=== PATIENT | female | born 1950 | race Caucasian/White ===

== ENCOUNTER → 2016-09-29 | Day surgery (SDC) | payer OTHER ==
[2016-09-28 14:08] VITALS: BMI 30.7
[~2016-09-29] MED LIST: IV FLUID CONTINUATION 1,000 ML IV ONE; SODIUM CHLORIDE 0.9% 1,000 ML IV SCH
[2016-09-29 08:21] VITALS: BP 146/76; PULSE 56; RESP 16; TEMP 98.1
--- NOTE | 2016-09-29 16:14 | CE ---
DATE OF SERVICE: PROCEDURE PERFORMED: Tilt table testing. Patient has a history of recurrent pulmonary and dizzy spells. Baseline blood pressure 135/83 mmHg. Baseline heart rate 65 beats a minute. The patient was tilted upright at an angle of 70 degrees per protocol. There was a very mild reduction in her blood pressure. The lowest blood pressure was 113/7/5 mm of mercury without any change in her heart rate. She felt hot and sick to her stomach. When she was laid supine, her blood pressure increased to 135/70 millimeters of mercury. IMPRESSION: 1. No evidence for neurocardiogenic syncope. 2. No clear-cut evidence for dysautonomia. However, there was a mild reduction in blood pressure with upright position without any change in her heart rate. No loss of consciousness. No significant drop in blood pressure. The patient was symptomatic and her blood pressure was at the lowest which was about 113/75 mm of Hg. She felt a little sick to her stomach and felt hot.
== END ==
LOC: CATHEP 08:03
PROVIDERS: ATTEND Internal Medicine Clinical Cardiac Electrophysiology
DX: R42 Dizziness and giddiness (principal); R00.2 Palpitations; I51.81 Takotsubo syndrome; E78.5 Hyperlipidemia, unspecified; E78.00 Pure hypercholesterolemia, unspecified; I10 Essential (primary) hypertension; J45.909 Unspecified asthma, uncomplicated; Z82.49 Family history of ischemic heart disease and other diseases of the circulatory system; Z79.82 Long term (current) use of aspirin; Z79.899 Other long term (current) drug therapy; Z79.51 Long term (current) use of inhaled steroids; Z88.5 Allergy status to narcotic agent; Z88.2 Allergy status to sulfonamides
CPT/HCPCS: 93005; 93660

== ENCOUNTER → 2016-10-22 | Outpatient (CLI) | payer OTHER ==
--- NOTE | 2016-10-22 14:37 | US ---
EXAMINATION TYPE: US kidneys/renal and bladder DATE OF EXAM: 10/22/2016 1:05 PM COMPARISON: NONE CLINICAL HISTORY: R31.9 Hematuria R10.32 LLQ and flank Pain R35 Freg Urination. EXAM MEASUREMENTS: Right Kidney: 11.6x 4.6 x 5.4 cm Left Kidney: 12.6 x 5.3 x 5.1 cm TECHNOLOGIST IMPRESSION: wnl Right Kidney: No hydronephrosis or masses seen Left Kidney: No hydronephrosis or masses seen Bladder: not well distended There is no evidence for hydronephrosis at this point in time. No nephrolithiasis is seen. No sandra s are identified on images saved. Bladder is poorly distended and thus suboptimally evaluated. IMPRESSION: No hydronephrosis is evident bilaterally. No significant finding is seen to account for patient's sym ptoms. If symptoms persists further investigation with CT urogram would be advised.
== END | disposition home or self-care (01) ==
LOC: RADUSWWP 13:03
PROVIDERS: ATTEND Family Medicine
DX: R31.9 Hematuria, unspecified (principal); R10.32 Left lower quadrant pain; R35.0 Frequency of micturition
CPT/HCPCS: 76770

== ENCOUNTER → 2016-10-26 | Outpatient (CLI) | payer OTHER ==
--- NOTE | 2016-10-26 18:24 | CT ---
EXAMINATION TYPE: CT urogram wo/w con DATE OF EXAM: 10/26/2016 6:11 PM COMPARISON: NONE HISTORY: Hematuria and left lower quadrant pain. CT DLP: 1971.70 mGycm Automated exposure control for dose reduction was used. CONTRAST: Performed with IV Contrast, patient injected with 100 mL of Omnipaque 300. FINDINGS: The noncontrast images show no renal calcifications. Ureters are not dilated. Visualized liver and spleen appear normal. Bile ducts are not dilated. There is no sign of a pancreat ic mass. There is no adrenal mass. There is normal contrast opacification of the kidneys. There is no hydronephrosis. There is no retroperitoneal adenopathy. There is no ascites. I see no intestinal wal l thickening. There are no dilated loops. There is no evidence of appendicitis. There is atherosclero tic vascular calcification. There are spondylotic changes in the lumbar spine. There is no evidence o f a renal mass. The bladder distends smoothly. There is minimal fat stranding that is anterior to the mid descending colon. IMPRESSION: THERE IS MINIMAL FAT STRANDING ANTERIOR TO THE DESCENDING COLON THAT COULD RELATE TO MILD FOCAL COLIT IS. NO EVIDENCE OF A URINARY TRACT ABNORMALITY.
== END | disposition home or self-care (01) ==
LOC: RADCTMAIN 17:05
PROVIDERS: ATTEND Family Medicine
DX: R31.9 Hematuria, unspecified (principal); R10.32 Left lower quadrant pain; R35.0 Frequency of micturition
CPT/HCPCS: 74178; 74400; Q9967

== ENCOUNTER → 2017-01-28 | Outpatient (CLI) | payer MEDICARE ==
--- NOTE | 2017-02-01 08:21 | MM ---
Reason for exam: screening (asymptomatic). Last mammogram was performed 1 year ago. History: Patient is postmenopausal and has history of high-risk lesion on a previous biopsy at age 56. Benign stereotactic core biopsy of the left breast, May 2015. Benign right mammotome panel of the right breast, July 24, 2013. Excisional biopsy of the left breast, March 18, 2007. High risk left mammotome panel of the left breast, February 28, 2007. Took estrogen for 2 years beginning at age 51. Physical Findings: A clinical breast exam by your physician is recommended on an annual basis and results should be correlated with mammographic findings. MG 3D Screening Mammo W/Cad Bilateral CC and MLO view(s) were taken. Prior study comparison: May 23, 2015, bilateral MG diagnostic mammo w CAD MARYANNE. There are scattered fibroglandular densities. Previous mammotome biopsy within the right and left breast. No significant changes when compared with prior studies. ASSESSMENT: Benign, BI-RAD 2 RECOMMENDATION: Routine screening mammogram of both breasts in 1 year.
== END | disposition home or self-care (01) ==
LOC: RADMAMWWP 11:45
PROVIDERS: ATTEND Obstetrics & Gynecology
DX: Z12.31 Encounter for screening mammogram for malignant neoplasm of breast (principal)
CPT/HCPCS: 77063; G0202

== ENCOUNTER 2017-04-15 19:23 | Emergency (ER) | payer MEDICARE ==
[2017-04-15] MEDS ORDERED: hydrALAZINE HCL 20 MG/ML 1 ML VIAL IVP STA (19:58)
[2017-04-15 20:07] LABS: Basophils # (A) 0.1 k/uL (0-0.2); Basophils % (A) 1 %; CH 28.8; CHCM 33.9; Eosinophils # (A) 0.3 k/uL (0-0.7); Eosinophils % (A) 3 %; HCT 38.5 % (34.0-46.0); HDW 2.81; HGB 13.4 gm/dL (11.4-16.0); Luc # (Auto) 0.43; Luc % (Auto) 5; Lymphocytes # (A) 2.5 k/uL (1.0-4.8); Lymphocytes % (A) 26 %; MCH 29.7 pg (25.0-35.0); MCHC 34.8 g/dL (31.0-37.0); MCV 85.5 fL (80.0-100.0); Mean Platelet Volume 6.5; Monocytes # (A) 0.4 k/uL (0-1.0); Monocytes % (A) 4 %; Neutrophils # (A) 5.9 k/uL (1.3-7.7); Neutrophils % (A) 62 %; RBC 4.51 m/uL (3.80-5.40); RDW 13.9 % (11.5-15.5); WBC 9.5 k/uL (3.8-10.6); WBC (Perox) 9.44
[2017-04-15 20:17] LABS: ALT 42 U/L (9-52); AST 31 U/L (14-36); Alkaline Phosphatase 95 U/L (38-126); Anion Gap 11 mmol/L; Blood Urea Nitrogen 9 mg/dL (7-17); Calcium 9.7 mg/dL (8.4-10.2); Carbon Dioxide 25 mmol/L (22-30); Chloride 107 mmol/L (98-107); Glucose 96 mg/dL (74-99); Non-African American GFR(MDRD) >60 (>60 ml/min/1.73 sqM); Potassium 4.3 mmol/L (3.5-5.1); Sodium 143 mmol/L (137-145); Total Bilirubin 0.4 mg/dL (0.2-1.3); Total Protein 7.2 g/dL (6.3-8.2)
[2017-04-15] MEDS ORDERED: LABETALOL 5 MG/ML VIAL MDV IVP STA (20:48)
--- NOTE | 2017-04-15 20:48 | ED ---
General Adult HPI - General Chief complaint: Shortness of Breath Stated complaint: high blood pressure Time Seen by Provider: 04/15/17 19:48 Source: patient Mode of arrival: ambulatory Limitations: no limitations - History of Present Illness Initial comments: This 66-year-old white female presents with a complaint of hypertension. Her blood pressure apparently was running fairly high at home. She otherwise is fairly asymptomatic. She states that she's had a slight cold with occasional cough and occasional shortness of breath over the last 2 months. This is unchanged today. She denies any fevers, chest pain, leg swelling. She complains of a mild headache which she feels may be related to her blood pressure being elevated. She has had blood pressure problems for some time but is been relatively stable. She denies any recent changes in her medications. She took an extra dose for blood pressure medication tonight without any significant relief. She denies any other complaints or modifying factors. - Related Data Home Medications Medication Instructions Recorded Confirmed Cyclobenzaprine [Flexeril] 10 mg PO HS PRN 06/11/14 04/15/17 Metoprolol Succinate (ER) [Toprol 25 mg PO QAM 07/01/15 04/15/17 XL] Albuterol Nebulized [Ventolin 2.5 mg INHALATION RT-QID PRN 07/02/15 04/15/17 Nebulized] Pantoprazole Sodium [Protonix] 40 mg PO HS 07/02/15 04/15/17 Aspirin EC [Ecotrin Low Dose] 81 mg PO HS 09/28/16 04/15/17 Budesonide/Formoterol Fumarate 1 puff INHALATION RT-HS PRN 09/28/16 04/15/17 [Symbicort 80-4.5 Mcg Inhaler] Levothyroxine Sodium [Synthroid] 50 mcg PO HS 09/28/16 04/15/17 Losartan Potassium [Cozaar] 50 mg PO DAILY 09/28/16 04/15/17 Montelukast [Singulair] 10 mg PO HS 09/28/16 04/15/17 Multivitamins, Thera [Multivitamin] 1 tab PO HS 09/28/16 04/15/17 Allergies Allergy/AdvReac Type Severity Reaction Status Date / Time codeine Allergy Rash/Hives Verified 04/15/17 19:40 Sulfa (Sulfonamide Allergy Rash/Hives Verified 04/15/17 19:35 Antibiotics) Review of Systems ROS Statement: Those systems with pertinent positive or pertinent negative responses have been documented in the HPI. ROS Other: All systems not noted in ROS Statement are negative. Past Medical History Past Medical History: Asthma, GERD/Reflux, Hyperlipidemia, Hypertension, Osteoarthritis (OA), Thyroid Disorder Additional Past Medical History / Comment(s): Hx. of Irritable Bowel Syndrome. See Dr. Rodriguez's H & P. History of Any Multi-Drug Resistant Organisms: None Reported Past Surgical History: Appendectomy, Heart Catheterization, Joint Replacement, Tonsillectomy, Tubal Ligation Additional Past Surgical History / Comment(s): Sinus Surgery; cervical fusion, hip surgery, See Dr. Rodriguez's H & P. Past Anesthesia/Blood Transfusion Reactions: No Reported Reaction Past Psychological History: No Psychological Hx Reported Smoking Status: Never smoker - Past Family History Father Family Medical History: Cancer Additional Family Medical History / Comment(s): Leukemia. Mother Family Medical History: Hyperlipidemia Additional Family Medical History / Comment(s): heart valve problems, sciatica. General Exam - General Exam Comments Initial Comments: GENERAL: The patient is well nourished and well hydrated. VITAL SIGNS: Heart rate, blood pressure, respiratory rate reviewed as recorded in nurse's notes. EYES: Pupils are round and reactive. Extraocular movements are intact. No conjunctival / lid redness or swelling. ENT: No external evidence of injury, swelling, or ecchymosis. Airway is patent. Throat is clear. NECK: Nontender. No swelling or evidence of injury. No subcutaneous emphysema. Trachea is midline. No thyroid mass. HEART: Regular rate and rhythm. Good peripheral pulses. LUNGS/CHEST: Breath sounds clear and equal bilaterally. No rales, rhonchi, or wheezes. No ecchymosis, subcutaneous emphysema, or tenderness. ABDOMEN: Abdomen soft without tenderness. No palpable masses or organomegaly. No peritoneal signs. No abdominal wall swelling or ecchymosis. EXTREMITIES: No extremity tenderness. Normal muscle tone and function. No thoracolumbar tenderness. NEUROLOGIC: Sensation is grossly intact. Cranial nerve exam reveals face is symmetrical, tongue is midline, speech is clear. SKIN: No abrasions or ecchymosis is noted. No induration or masses noted. PSYCHIATRIC: Alert and oriented. Appropriate behavior and judgment. Limitations: no limitations Course Vital Signs 08/03/17 08/03/17 08/03/17 19:31 19:56 20:16 Temperature 99.9 F H Pulse Rate 64 68 Respiratory 16 20 18 Rate Blood Pressure 193/88 186/89 O2 Sat by Pulse 96 96 Oximetry 04/15/17 20:57 Temperature Pulse Rate 75 Respiratory 20 Rate Blood Pressure 195/82 O2 Sat by Pulse 98 Oximetry Medical Decision Making - Medical Decision Making The patient was seen and examined. All diagnostics were reviewed. An EKG was done which shows a normal sinus rhythm at a rate of 67. There is some T-wave inversion in the anterolateral leads. The WA interval is 168, QS duration is 88 , and the QTc interval is 41. An IV was established and she received some hydralazine intravenously. The chest x-ray does not show any acute process. She later does receive some labetalol intravenously as well. She is feeling better on recheck. The exact cause of her hypertension is not definitively determined. Her laboratories unremarkable. It is felt as though she is stable for discharge. She should maintain a blood pressure log. She is instructed to take an extra dose of her blood pressure medicine tomorrow as well. She should have close follow-up with her doctor and leaves in no distress. - Lab Data Result diagrams: 04/15/17 19:50 04/15/17 19:50 Lab Results 04/15/17 04/15/17 Range/Units 19:50 19:50 WBC 9.5 (3.8-10.6) k/uL RBC 4.51 (3.80-5.40) m/uL Hgb 13.4 (11.4-16.0) gm/dL Hct 38.5 (34.0-46.0) % MCV 85.5 (80.0-100.0) fL MCH 29.7 (25.0-35.0) pg MCHC 34.8 (31.0-37.0) g/dL RDW 13.9 (11.5-15.5) % Plt Count 379 (150-450) k/uL Neutrophils % 62 % Lymphocytes % 26 % Monocytes % 4 % Eosinophils % 3 % Basophils % 1 % Neutrophils # 5.9 (1.3-7.7) k/uL Lymphocytes # 2.5 (1.0-4.8) k/uL Monocytes # 0.4 (0-1.0) k/uL Eosinophils # 0.3 (0-0.7) k/uL Basophils # 0.1 (0-0.2) k/uL Sodium 143 (137-145) mmol/L Potassium 4.3 (3.5-5.1) mmol/L Chloride 107 (98-107) mmol/L Carbon Dioxide 25 (22-30) mmol/L Anion Gap 11 mmol/L BUN 9 (7-17) mg/dL Creatinine 0.70 (0.52-1.04) mg/dL Est GFR (MDRD) Af Amer >60 (>60 ml/min/1.73 sqM) Est GFR (MDRD) Non-Af >60 (>60 ml/min/1.73 sqM) Glucose 96 (74-99) mg/dL Calcium 9.7 (8.4-10.2) mg/dL Total Bilirubin 0.4 (0.2-1.3) mg/dL AST 31 (14-36) U/L ALT 42 (9-52) U/L Alkaline Phosphatase 95 (38-126) U/L Total Protein 7.2 (6.3-8.2) g/dL Albumin 4.5 (3.5-5.0) g/dL Disposition Clinical Impression: Hypertensive urgency Disposition: HOME SELF-CARE Condition: Good Instructions: Hypertension (ED), DASH Eating Plan (ED) Referrals: Mary Maloney MD [Primary Care Provider] - 1-2 days Time of Disposition: 20:41
[2017-04-15 21:04] VITALS: RESP 18
--- NOTE | 2017-04-15 21:22 | XR ---
EXAMINATION TYPE: XR chest 2V DATE OF EXAM: 04/15/2017 COMPARISON: 01/12/2016 HISTORY: Difficulty breathing TECHNIQUE: Frontal and lateral views of the chest are obtained. FINDINGS: Heart appears enlarged. There is no heart failure. There is a hiatal hernia. There are charlene st leads. Bony thorax is intact. IMPRESSION: Cardiomegaly. No active cardia pulmonary disease. No change.
[2017-04-15 21:50] VITALS: BP 136/71; PULSE 76; TEMP 98
== END 2017-04-15 21:49 | disposition home or self-care (01) ==
LOC: EC 19:23
DX: I16.0 Hypertensive urgency (principal); K21.9 Gastro-esophageal reflux disease without esophagitis; E07.9 Disorder of thyroid, unspecified; M19.90 Unspecified osteoarthritis, unspecified site; J45.909 Unspecified asthma, uncomplicated; Z88.5 Allergy status to narcotic agent; Z88.2 Allergy status to sulfonamides; Z79.82 Long term (current) use of aspirin; Z79.899 Other long term (current) drug therapy
CPT/HCPCS: 36415; 93005; 80053; 85025; 71020; 99285; 96374; 96375; J0360

== ENCOUNTER → 2018-04-05 | Outpatient (CLI) | payer MEDICARE ==
--- NOTE | 2018-04-07 09:57 | MM ---
Reason for exam: screening (asymptomatic). Last mammogram was performed 1 year and 2 months ago. History: Patient is postmenopausal and has history of high-risk lesion on a previous biopsy at age 56. Benign stereotactic core biopsy of the left breast, May 2015. Benign right mammotome panel of the right breast, July 24, 2013. Excisional biopsy of the left breast, March 18, 2007. High risk left mammotome panel of the left breast, February 28, 2007. Took estrogen for 2 years beginning at age 51. Physical Findings: A clinical breast exam by your physician is recommended on an annual basis and results should be correlated with mammographic findings. MG 3D Screening Mammo W/Cad Bilateral CC and MLO view(s) were taken. Prior study comparison: January 28, 2017, bilateral MG 3d screening mammo w/cad. January 24, 2016, left breast MG 3d diag mammo w/cad LT. There are scattered fibroglandular densities. Previous mammotome biopsy in the right and left breast. There is chronic nodularity in the left breast. Stable lower inner quadrant right breast calcifications. Stable focal asymmetries right breast. No significant changes when compared with prior studies. ASSESSMENT: Benign, BI-RAD 2 RECOMMENDATION: Routine screening mammogram of both breasts in 1 year.
== END | disposition home or self-care (01) ==
LOC: RADMAMWWP 16:28
PROVIDERS: ATTEND Obstetrics & Gynecology
DX: Z12.31 Encounter for screening mammogram for malignant neoplasm of breast (principal)
CPT/HCPCS: 77063; 77067

== ENCOUNTER → 2019-03-29 | Outpatient (CLI) | payer MEDICARE ==
--- NOTE | 2019-03-30 07:57 | BD ---
EXAMINATION TYPE: Bone Density DATE OF EXAM: 03/29/2019 COMPARISON: 2012 CLINICAL HISTORY: osteoporosis Height: 5'3 Weight: FRAX RISK QUESTIONS: Secondary Osteoporosis: RISK FACTORS HISTORY OF: Family History of Osteoporosis: y Postmenopausal woman: y MEDICATIONS: Thyroid Medications: Which medication: Synthroid How Lon years Additional Medications: blood pressure, acid reflux, Singulair Additional History: EXAM MEASUREMENTS: Bone mineral densitometry was performed using the [employer] System. Bone mineral density as measured about the Lumbar spine is: ----- L1-L4(G/cm2): 1.185 T Score Values are as follows: ----- L2: -0.6 ----- L3: 0.3 ----- L4: 0.4 ----- L1-L4: 0.4 Bone mineral density has: Increased 3.6% since study of: 05/09/2013 Bone mineral density about the R hip (g/cm2): 0.930 Bone mineral density about the L hip (g/cm2): 0.824 T Score values are as follows: -----R Neck: -0.8 -----L Neck: -1.5 -----R Total: -1.0 -----L Total: -1.4 Bone mineral density has: Increased 0.1% since study of: 05/09/2013 IMPRESSION: Osteopenia (T Score between -2.5 and -1) left hip remains present. Bone density is stable or slightly increased from prior. There remains slightly increased risk of fracture and the patient may be considered for treatment. Re-Screen 2-5 years. NOTE: T-SCORE=SD OF THE YOUNG ADULT MEAN.
== END | disposition home or self-care (01) ==
LOC: RADMAMWWP 15:10
PROVIDERS: ATTEND Obstetrics & Gynecology
DX: M85.852 Other specified disorders of bone density and structure, left thigh (principal); Z78.0 Asymptomatic menopausal state
CPT/HCPCS: 77080

== ENCOUNTER → 2019-04-26 | Outpatient (CLI) | payer MEDICARE ==
--- NOTE | 2019-04-27 14:06 | MM ---
Reason for exam: screening (asymptomatic). Last mammogram was performed 1 year and 1 month ago. History: Patient is postmenopausal and has history of high-risk lesion on a previous biopsy at age 56. Benign stereotactic core biopsy of the left breast, May 2015. Benign right mammotome panel of the right breast, July 24, 2013. Excisional biopsy of the left breast, March 18, 2007. High risk left mammotome panel of the left breast, February 28, 2007. Took estrogen for 2 years beginning at age 51. Physical Findings: A clinical breast exam by your physician is recommended on an annual basis and results should be correlated with mammographic findings. MG 3D Screening Mammo W/Cad Bilateral CC and MLO view(s) were taken. Prior study comparison: April 05, 2018, bilateral MG 3d screening mammo w/cad. January 28, 2017, bilateral MG 3d screening mammo w/cad. The breast tissue is heterogeneously dense. This may lower the sensitivity of mammography. There is increased right lower inner quadrant posterior depth calcifications. Right upper outer quadrant middle depth focal asymmetry. Bilateral biopsy markers noted. ASSESSMENT: Incomplete: need additional imaging evaluation, BI-RAD 0 RECOMMENDATION: Special view mammogram of the right breast. If lesion persists on supplemental views, image directed ultrasound is recommended. [facility] will attempt to contact patient to return for supplemental views and ultrasound if indicated.
== END | disposition home or self-care (01) ==
LOC: RADMAMWWP 10:50
PROVIDERS: ATTEND Obstetrics & Gynecology
DX: Z12.31 Encounter for screening mammogram for malignant neoplasm of breast (principal)
CPT/HCPCS: 77063; 77067

== ENCOUNTER → 2019-05-08 | Outpatient (CLI) | payer MEDICARE ==
--- NOTE | 2019-05-10 09:26 | MM ---
Reason for exam: additional evaluation requested from abnormal screening. Last mammogram was performed less than 1 month ago. History: Patient is postmenopausal and has history of high-risk lesion on a previous biopsy at age 56. Benign stereotactic core biopsy of the left breast, May 2015. Benign right mammotome panel of the right breast, July 24, 2013. Excisional biopsy of the left breast, March 18, 2007. High risk left mammotome panel of the left breast, February 28, 2007. Took estrogen for 2 years beginning at age 51. Physical Findings: Nurse did not find any significant physical abnormalities on exam. MG 3D Work Up W/Cad RT Spot compression CC, spot compression MLO, CC with magnification, LM with magnification, and LM view(s) were taken of the right breast. Prior study comparison: April 26, 2019, bilateral MG 3d screening mammo w/cad. April 05, 2018, bilateral MG 3d screening mammo w/cad. The breast tissue is heterogeneously dense. This may lower the sensitivity of mammography. There is a 1.3cm group of calcifications in the right lower inner quadrant at posterior depth that are increasing biopsy recommended. Right upper outer quadrant focal asymmetry is stable in comparison to priors back to 2009. These results were verbally communicated with the patient and result sheet given to the patient on 05/08/19. ASSESSMENT: Suspicious, BI-RAD 4 RECOMMENDATION: Stereotactic core biopsy of the right breast. Called with mammographic findings and has scheduled an appointment for the patient for 06/28/19 at 3:[address] Maloney. Biopsy scheduled for 05/16/19 at 10:20. PRELIMINARY REPORT CALLED AND FAXED TO DR. MALONEY ON 05/10/19.
== END | disposition home or self-care (01) ==
LOC: RADMAMWWP 14:07
PROVIDERS: ATTEND Obstetrics & Gynecology
DX: R92.8 Other abnormal and inconclusive findings on diagnostic imaging of breast (principal)
CPT/HCPCS: 77065; G0279; 77061

== ENCOUNTER → 2019-05-26 | Day surgery (SDC) | payer MEDICARE ==
[2019-05-26 09:54] VITALS: RESP 16
[2019-05-26 11:21] VITALS: BP 138/77; PULSE 66; TEMP 97.8
--- NOTE | 2019-05-26 12:24 | MM ---
EXAMINATION TYPE: MG stereo VAD BX RT DATE OF EXAM: 05/26/2019 COMPARISON: Mammographic workup dated 05/08/1915 CLINICAL HISTORY: Indeterminate right breast calcifications for which stereotactic guided biopsy was recommended TECHNIQUE: Stereotactic guided core biopsy of the right breast. FINDINGS: The procedure of stereotactic guided core biopsy was explained to the patient. Benefits, alternatives, and risks were discussed. An informed consent was then obtained. Preprocedural timeout was performed. The shortness pathway for biopsy was chosen. Shortness pathway was CC from below approach. Preprocedural localization images were obtained and a 1.3 cm group of calcifications within the lower inner quadrant of the right breast was demonstrated. Coordinates were calculated. Subsequently 10 cc of lidocaine without epinephrine was utilized to anesthetize the skin and deeper subcutaneous soft tissues. The needle was advanced to the appropriate depth. Prefire images were obtained ensuring appropriate location. Postfire injection of 10 cc of lidocaine with epinephrine was utilized to anesthetize the site of biopsy. A vacuum assisted biopsy gun was used to obtain 7 core samples. Biopsy marker was placed. The patient tolerated the procedure well without any immediate complication. The patient was kept in the radiology department for short stay after the procedure and then discharged home in stable condition. Targeted calcifications are identified in specimen mammogram. Post biopsy mammogram shows the biopsy marker to appear in satisfactory position relative to the targeted area of concern on the preprocedure images without migration within the lower inner quadrant of the right breast at posterior depth. IMPRESSION: SUCCESSFUL, UNCOMPLICATED STEREOTACTIC GUIDED CORE BIOPSY OF A GROUP OF 1.3 CM CALCIFICATIONS WITHIN THE LOWER INNER QUADRANT OF THE RIGHT BREAST, FULL PATHOLOGY RESULTS TO FOLLOW. Pathology Results: Benign RIGHT BREAST LESION, NEEDLE CORE BIOPSIES: Fibroadenomatoid hyperplasia in a background of fibrocystic changes with coarse intraductal mineralizations. Recommendation Follow up mammogram of the right breast in 6 months. MTDD
== END ==
LOC: RADMAMWWP 09:14
PROVIDERS: ATTEND Surgery
DX: D24.1 Benign neoplasm of right breast (principal); N60.11 Diffuse cystic mastopathy of right breast; R92.8 Other abnormal and inconclusive findings on diagnostic imaging of breast; R92.1 Mammographic calcification found on diagnostic imaging of breast; Z88.5 Allergy status to narcotic agent; Z88.2 Allergy status to sulfonamides
CPT/HCPCS: 88305; 19081; A4648; J2001

== ENCOUNTER → 2019-06-06 | Outpatient (CLI) | payer MEDICARE ==
--- NOTE | 2019-06-06 13:43 | US ---
EXAMINATION TYPE: US thyroid st tissue head/neck DATE OF EXAM: 06/06/2019 COMPARISON: NONE CLINICAL HISTORY: E04.1 thyroid nodule. On thyroid meds. Patient states doctor felt nodule. GLAND SIZE: Right Lobe: 3.8 x 1.8 x 2.0 cm Overall Parenchyma: heterogenous Left Lobe: 3.3 x 1.5 x 1.2 cm Overall Parenchyma: heterogeneous Isthmus Thickness: 0.3 cm NODULES RIGHT: # of nodules measured on right: 2 1. 1.6 X 1.2 x 1.6 cm mixed nodule at the mid pole with well-defined margins. This nodule is talle r than wide and shows intranodular vascularity. Prior size: No prior 2. 1.1 X 0.8 x 0.8 cm solid nodule at the lower pole with well-defined margins. This nodule is wide as tall and shows no intranodular vascularity. Prior size: No prior LEFT: # of nodules measured on left: 2 1. 1.7 X 1.2 x 0.8 cm solid nodule at the mid pole with well-defined margins. This nodule is wider than tall and shows intranodular vascularity. Prior size: No prior 2. 0.6 X 0.6 x 0.5 cm solid nodule at the lower pole with well-defined margins. This nodule is wide r than tall and shows no intranodular vascularity. Prior size: No prior ISTHMUS: # of nodules measured in the isthmus: 0 Bilateral neck scanned, no evidence of lymphadenopathy. IMPRESSION: Multiple solid bilateral thyroid nodules. Fine-needle aspiration is recommended for the largest nodul es bilaterally.
== END | disposition home or self-care (01) ==
LOC: RADUSWWP 12:56
PROVIDERS: ATTEND Allergy & Immunology
DX: E04.2 Nontoxic multinodular goiter (principal)
CPT/HCPCS: 76536

== ENCOUNTER → 2019-06-08 | Outpatient (CLI) | payer MEDICARE ==
--- NOTE | 2019-06-08 13:55 | XR ---
EXAMINATION TYPE: XR chest 2V DATE OF EXAM: 06/08/2019 COMPARISON: None INDICATION: A 45.40 TECHNIQUE: Frontal and lateral views of the chest are obtained. FINDINGS: The heart size is mildly prominent. The pulmonary vasculature is normal. The lungs are clear. IMPRESSION: 1. No acute pulmonary process.
== END | disposition home or self-care (01) ==
LOC: RADXRMAIN 13:19
PROVIDERS: ATTEND Allergy & Immunology
DX: J45.40 Moderate persistent asthma, uncomplicated (principal)
CPT/HCPCS: 71046

== ENCOUNTER 2019-06-29 09:21 | Day surgery (SDC) | payer MEDICARE ==
[2019-06-29] MEDS ORDERED: ALPRAZolam 0.25 MG TAB PO ONE (09:40)
[2019-06-29 09:44] VITALS: TEMP 98.3
[2019-06-29 11:33] VITALS: BP 139/71; PULSE 63; RESP 14
--- NOTE | 2019-06-29 12:18 | US ---
ULTRASOUND GUIDED FNA THYROID BIOPSY: CLINICAL HISTORY: Request for a 1.6 cm right and 1.7 cm left thyroid nodule FNA FINDINGS: The procedure was explained to the patient. The risks, complications, benefits and alternatives were discussed and any questions were answered. Informed consent was obtained. Patient was placed supin e on the ultrasound table and prepped and draped in the usual sterile fashion. Utilizing a 25 gauge needle, five passes were made into the each of the 2 requested thyroid nodules. Patient was stable throughout the procedure. Pathology is pending. All elements of maximal barrier technique were utilized. IMPRESSION: 1. Successful ultrasound guided FNA thyroid biopsy.
== END 2019-06-29 10:23 | disposition home or self-care (01) ==
LOC: RADPROMAIN 09:21
PROVIDERS: ATTEND Family Medicine
DX: E04.2 Nontoxic multinodular goiter (principal)
CPT/HCPCS: 10005; 10006; 88173; 88305

== ENCOUNTER → 2019-07-11 | Outpatient (CLI) | payer MEDICARE ==
[2019-07-11 16:53] LABS: African American GFR (CKD) 103.9 (60.0-200.0); Anion Gap 11.9 mmol/L (4.00-12.00); Calcium 9.8 mg/dL (8.7-10.3); Carbon Dioxide 28.1 mmol/L (21.6-31.8); Chol/HDL Ratio 4.77; LDL Cholesterol,Calculated 197.2 mg/dL (0.0-131.0); Potassium 4.2 mmol/L (3.5-5.5); VLDL Calculation 32.8 mg/dL (5.00-40.00)
[2019-07-11 17:01] LABS: T4, Free (Free Thyroxine) 1.2 ng/dL (0.80-1.80)
[2019-07-11 17:03] LABS: Thyroid Peroxidase Antibodies <28.0 U/mL (0.0-60.0)
== END | disposition home or self-care (01) ==
LOC: LABWHC1 09:20
PROVIDERS: ATTEND Physician Assistant
DX: I10 Essential (primary) hypertension (principal); R00.2 Palpitations; E78.5 Hyperlipidemia, unspecified; E03.9 Hypothyroidism, unspecified
CPT/HCPCS: 36415; 80048; 80061; 84436; 84439; 84443; 84481; 86376; 86800

== ENCOUNTER 2019-09-22 08:08 | Day surgery (SDC) | payer MEDICARE ==
[2019-07-26 12:12] VITALS: BMI 29.2
[~2019-09-22 08:08] MED LIST changes: -IV FLUID CONTINUATION 1,000 ML IV ONE; +LACTATED RINGERS 1,000 ML IV SCH; +LIDOCAINE 1% 20 ML VIAL (10MG/ML) FOR IV START INTRADERMA PRN; -SODIUM CHLORIDE 0.9% 1,000 ML IV SCH
[2019-09-22 09:00] VITALS: RESP 16; TEMP 98.1
[2019-09-22] MEDS ORDERED: LIDOCAINE 1% INJ 10MG/ML (20 ML MDV) ONE (09:16)
[2019-09-22] MEDS ORDERED: PROPOFOL 10 MG/ML 20 ML VIAL IV ONE (09:16)
--- NOTE | 2019-09-22 09:47 | P.PCN ---
Date of Procedure: 09/22/19 Procedure(s) Performed: Brief history: Patient is a pleasant 68-year-old white female scheduled for an elective upper endoscopy as well as colonoscopy as a part of evaluation of intermittent dysphagia to solids, long-standing history of GERD and change in bowel habits. Procedure performed: Esophagogastroduodenoscopy with biopsy Colonoscopy with snare polypectomy Preoperative diagnosis: /Dysphagia Change in bowel habits/history of IBS Anesthesia: MAC Procedure: After informed consent was obtained from the patient was brought into the endoscopy unit and IV sedation was administered by anesthesia under continuous monitoring. Initially upper endoscopy was done. The Olympus GF 160 video end oscope was inserted inserted into the mouth and esophagus intubated without any difficulty and was gradually advanced into the stomach and duodenum and carefully examined. The bulb and second part of the duodenum appeared normal. Multiple biopsies were done from the duodenum to rule out celiac disease. The scope was then withdrawn into the stomach adequately insufflated with air and upon careful examination the antrum and body, cardia and fundus appeared normal. There were multiple small to moderate size gastric polyps measuring between 5 mm to 1 cm in size which were biopsied. The scope was then withdrawn into the esophagus. The GE junction was located at 40 cm to the incisors. It appeared regular with no erythema erosions or ulcerations. Biopsies were done from the mid and distal esophagus to rule out eosinophilic esophagitis. Rest of the esophagus appeared normal. Patient tolerated the procedure well. At this time the patient continued to remain sedation. Initial digital rectal examination was normal. Olympus CF 160 video colonoscope was then inserted into the rectum and gradually advanced to the cecum without any difficulty. Careful examination was performed as the scope was gradually being withdrawn. The prep was excellent. The cecum, appeared normal. In the ascending colon there was a 1 cm broad-based polyp that was removed by snare polypectomy. In the hepatic flexure there was a 1.5 L broad-based polyp removed by snare polypectomy. In the proximal transverse colon there was another 1 cm broad-based polyp removed by snare polypectomy. Rest of the ascending colon, transverse colon, descending colon, sigmoid colon and rectum appeared normal. Retroflexion was performed in the rectum and no lesions were noted. Patient tolerated the procedure well. Impression: 1. Upper endoscopy revealed multiple gastric polyps status post biopsy and mild antral gastritis 2. Colonoscopy revealed: a) 1 cm broad-based ascending colon polyp status post polypectomy b) 1.5 cm broad-based hepatic flexure polyp status post polypectomy C0 1 cm broad-based proximal transverse colon polyp status post polypectomy d) scattered sigmoid diverticulosis Recommendations: Findings of this examination were discussed with the patient as well as her family. She was advised to follow with the biopsy results. If the biopsy shows an adenoma she can have a repeat colonoscopy in 3 years.
[2019-09-22 10:00] VITALS: BP 119/59; PULSE 79
== END 2019-09-22 10:55 | disposition home or self-care (01) ==
LOC: ORWHC2ENDO 08:08
PROVIDERS: ATTEND Internal Medicine Gastroenterology
DX: D12.2 Benign neoplasm of ascending colon (principal); D12.3 Benign neoplasm of transverse colon; K21.9 Gastro-esophageal reflux disease without esophagitis; K31.7 Polyp of stomach and duodenum; K29.50 Unspecified chronic gastritis without bleeding; K57.30 Diverticulosis of large intestine without perforation or abscess without bleeding; I10 Essential (primary) hypertension; E78.5 Hyperlipidemia, unspecified; J45.909 Unspecified asthma, uncomplicated; E07.9 Disorder of thyroid, unspecified; Z79.899 Other long term (current) drug therapy; Z88.5 Allergy status to narcotic agent; Z88.2 Allergy status to sulfonamides; Z87.19 Personal history of other diseases of the digestive system; Z79.82 Long term (current) use of aspirin; Z79.890 Hormone replacement therapy; Z79.51 Long term (current) use of inhaled steroids
CPT/HCPCS: 88305; 45385; 43239; J2001; J2704

== ENCOUNTER → 2019-11-07 | Outpatient (CLI) | payer MEDICARE ==
[2019-11-07 12:52] LABS: Basophils % (A) 0 %; Eosinophils # (A) 0.1 k/uL (0-0.7); Eosinophils % (A) 2 %; HCT 40.9 % (34.0-46.0); HGB 13.8 gm/dL (11.4-16.0); Lymphocytes # (A) 1.9 k/uL (1.0-4.8); Lymphocytes % (A) 21 %; MCH 28.6 pg (25.0-35.0); MCHC 33.8 g/dL (31.0-37.0); MCV 84.5 fL (80.0-100.0); Mean Platelet Volume 7.1; Monocytes # (A) 0.3 k/uL (0-1.0); Monocytes % (A) 4 %; Neutrophils # (A) 6.4 k/uL (1.3-7.7); Neutrophils % (A) 69 %; Platelet Count 422 k/uL (150-450); RBC 4.84 m/uL (3.80-5.40); RDW 13.6 % (11.5-15.5); WBC 9.2 k/uL (3.8-10.6)
[2019-11-07 13:16] LABS: Erythrocyte Sedimentation Rate 29 mm/hr (0-20)
[2019-11-07 17:30] LABS: African American GFR (CKD) 103.9 (60.0-200.0); Albumin 4.9 g/dL (3.80-4.90); Albumin/Globulin Ratio 2.88 (1.60-3.17); Anion Gap 9.9 mmol/L (4.00-12.00); C Reactive Protein 1.9 mg/dL (0.0-0.8); Carbon Dioxide 27.1 mmol/L (21.6-31.8); Globulin 1.7 g/dL (1.6-3.3); Non-African American GFR(CKD) 89.7 (60.0-200.0); Potassium 5.2 mmol/L (3.5-5.5); Total Bilirubin 0.3 mg/dL (0.3-1.2); Total Protein 6.6 g/dL (6.2-8.2)
== END | disposition home or self-care (01) ==
LOC: LABWHC1 11:39
PROVIDERS: ATTEND Allergy & Immunology
DX: J45.40 Moderate persistent asthma, uncomplicated (principal); M79.10 Myalgia, unspecified site
CPT/HCPCS: 36415; 80053; 82550; 85025; 85652; 86038; 86140

== ENCOUNTER → 2020-02-14 | Outpatient (CLI) | payer MEDICARE ==
--- NOTE | 2020-02-15 09:09 | MM ---
Reason for exam: follow-up at short interval from prior study. Last mammogram was performed 9 months ago. History: Patient is postmenopausal and has history of high-risk lesion on a previous biopsy at age 56. Family history of breast cancer in paternal grandmother. Benign MG stereo VAD BX RT of the right breast, May 26, 2019. Benign stereotactic core biopsy of the left breast, May 2015. Benign right mammotome panel of the right breast, July 24, 2013. Excisional biopsy of the left breast, March 18, 2007. High risk left mammotome panel of the left breast, February 28, 2007. Took estrogen for 2 years beginning at age 51. Physical Findings: A clinical breast exam by your physician is recommended on an annual basis and results should be correlated with mammographic findings. MG 3D Diag Mammo W/Cad RT CC and MLO view(s) were taken of the right breast. Prior study comparison: May 08, 2019, right breast MG 3d work up w/cad RT. April 26, 2019, bilateral MG 3d screening mammo w/cad. The breast tissue is heterogeneously dense. This may lower the sensitivity of mammography. Finding: There are typically benign dystrophic, round calcifications in the right breast. Previous mammotome biopsy in the right breast x 2. There is a chronic nodularity in the right breast. There is no discrete abnormality. These results were verbally communicated with the patient and result sheet given to the patient on 02/14/20. ASSESSMENT: Benign, BI-RAD 2 RECOMMENDATION: Return to routine screening mammogram schedule for both breasts. Back on schedule for April 2020.
== END | disposition home or self-care (01) ==
LOC: RADMAMWWP 12:48
PROVIDERS: ATTEND Surgery
DX: R92.8 Other abnormal and inconclusive findings on diagnostic imaging of breast (principal)
CPT/HCPCS: 77065; G0279; 77061

== ENCOUNTER → 2020-04-29 | Outpatient (CLI) | payer MEDICARE ==
--- NOTE | 2020-05-01 08:38 | MM ---
Reason for exam: screening (asymptomatic). Last mammogram was performed 2 months ago. History: Patient is postmenopausal and has history of high-risk lesion on a previous biopsy at age 56. Family history of breast cancer in paternal grandmother. Benign MG stereo VAD BX RT of the right breast, May 26, 2019. Benign stereotactic core biopsy of the left breast, May 2015. Benign right mammotome panel of the right breast, July 24, 2013. Excisional biopsy of the left breast, March 18, 2007. High risk left mammotome panel of the left breast, February 28, 2007. Took estrogen for 2 years beginning at age 51. Physical Findings: A clinical breast exam by your physician is recommended on an annual basis and results should be correlated with mammographic findings. MG 3D Screening Mammo W/Cad Bilateral CC and MLO view(s) were taken. Prior study comparison: February 14, 2020, right breast MG 3d diag mammo w/cad RT. May 08, 2019, right breast MG 3d work up w/cad RT. There are scattered fibroglandular densities. Bilateral calcifications. No significant changes when compared with prior studies. ASSESSMENT: Benign, BI-RAD 2 RECOMMENDATION: Routine screening mammogram of both breasts in 1 year.
== END | disposition home or self-care (01) ==
LOC: RADMAMWWP 11:19
PROVIDERS: ATTEND Internal Medicine Geriatric Medicine
DX: Z12.31 Encounter for screening mammogram for malignant neoplasm of breast (principal)
CPT/HCPCS: 77063; 77067

== ENCOUNTER → 2020-05-23 | Outpatient (CLI) | payer MEDICARE ==
[2020-05-23 11:46] LABS: ALT 46 U/L (4-34); AST 48 U/L (14-36); African American GFR (CKD) >90 (>60 ml/min/1.73 sqM); Albumin 4.2 g/dL (3.5-5.0); Alkaline Phosphatase 128 U/L (38-126); Anion Gap 8 mmol/L; Blood Urea Nitrogen 16 mg/dL (7-17); Calcium 9.8 mg/dL (8.4-10.2); Carbon Dioxide 29 mmol/L (22-30); Chloride 103 mmol/L (98-107); Glucose 99 mg/dL (74-99); HCT 41.9 % (34.0-46.0); HGB 13.5 gm/dL (11.4-16.0); MCH 28.4 pg (25.0-35.0); MCHC 32.2 g/dL (31.0-37.0); MCV 88.1 fL (80.0-100.0); Non-African American GFR(CKD) >90 (>60 ml/min/1.73 sqM); Platelet Count 360 k/uL (150-450); Potassium 4.8 mmol/L (3.5-5.1); RBC 4.76 m/uL (3.80-5.40); RDW 13.5 % (11.5-15.5); Sodium 140 mmol/L (137-145); Total Bilirubin 0.5 mg/dL (0.2-1.3); Total Protein 6.9 g/dL (6.3-8.2); WBC 9.1 k/uL (3.8-10.6)
[2020-05-23 11:55] LABS: Appearance,Urine Clear (Clear); Bilirubin,Urine Negative (Negative); Blood,Urine Negative (Negative); Color,Urine Light Yellow; Glucose,Urine (UA) Negative (Negative); Ketones,Urine Negative (Negative); Leukocyte Esterase,Urine Negative (Negative); Nitrite,Urine Negative (Negative); PH, Urine 6.5 (5.0-8.0); Protein,Urine Negative (Negative); Specific Gravity,Urine 1.004 (1.001-1.035); Urobilinogen,Urine <2.0 mg/dL (<2.0)
[2020-05-23 12:01] LABS: INR 0.9 (<1.2); Partial Thromboplastin Time 22.9 sec (22.0-30.0); Prothrombin Time 9.4 sec (9.0-12.0)
== END | disposition home or self-care (01) ==
LOC: LABPAT 10:36
PROVIDERS: ATTEND Orthopaedic Surgery
DX: Z01.818 Encounter for other preprocedural examination (principal); Z01.812 Encounter for preprocedural laboratory examination; M16.11 Unilateral primary osteoarthritis, right hip; Z79.01 Long term (current) use of anticoagulants
CPT/HCPCS: 36415; 80053; 81003; 85027; 85610; 85730; 87070

== ENCOUNTER 2020-06-17 05:45 | Day surgery (SDC) | payer MEDICARE ==
[~2020-06-17 05:45] MED LIST changes: +ACETAMINOPHEN TAB 500 MG TAB PO ONE; +GABAPENTIN 300 MG CAP PO ONE; -LACTATED RINGERS 1,000 ML IV SCH; -LIDOCAINE 1% 20 ML VIAL (10MG/ML) FOR IV START INTRADERMA PRN; +MELOXICAM 7.5 MG TAB PO ONE; +TRANEXAMIC ACID 1,000 MG in SODIUM CHLORIDE 0.9% 100 ML IVPB ONE
[2020-06-17] MEDS ORDERED: MIDAZOLAM 2 MG/2 ML VIAL IV PRN (05:46)
[2020-06-17] MEDS ORDERED: LIDOCAINE 1% (10MG/ML) FOR IV START INTRADERMA PRN (05:46)
[2020-06-17] MEDS ORDERED: DEXAMETHASONE SOD PHOSPHATE 10 MG/ML 1 ML VIAL IV ONE (05:46)
[2020-06-17] MEDS ORDERED: LACTATED RINGERS 1,000 ML IV SCH (05:46)
[2020-06-17] MEDS ORDERED: HYDROmorphone 0.5 MG/0.5 ML SYRINGE IVP PRN ×4 (05:46→08:57)
[2020-06-17] MEDS ORDERED: ONDANSETRON 4 MG/2 ML VIAL IVP ONE (05:46)
[2020-06-17] MEDS ORDERED: ROPIVACAINE 246.25 MG, EPINEPHrine 0.5 MG, KETOROLAC 30 MG, cloNIDine HCL/PF 80 MCG, WA... MISCELLANE ONE ×5 (06:00)
[2020-06-17] MEDS ORDERED: fentaNYL (PF) 50 MCG/ML 2 ML AMP ONE (06:57)
[2020-06-17] MEDS ORDERED: HEPARIN SODIUM,PORCINE 10,000 UNIT/ML 1 ML VIAL ONE (06:57)
[2020-06-17] MEDS ORDERED: SODIUM CHLORIDE 0.9% IRRIG 1,000 ML BTL IRRIGATION ONE (06:57)
[2020-06-17] MEDS ORDERED: MIDAZOLAM 2 MG/2 ML VIAL ONE (06:57)
[2020-06-17] MEDS ORDERED: PROPOFOL 10 MG/ML 20 ML VIAL IV ONE (06:57)
[2020-06-17] MEDS ORDERED: ceFAZolin 3,000 MG in SODIUM CHLORIDE 0.9% IRRIGATIO 3,000 ML IRRIGATION ONE (07:41)
--- NOTE | 2020-06-17 08:12 | P.OP ---
Date of Procedure: 06/17/20 Preoperative Diagnosis: Severe osteoarthritis right hip Postoperative Diagnosis: Severe osteoarthritis right hip Procedure(s) Performed: Right total hip arthroplasty with a direct anterior approach Implants: Tavarez [employer] nephew Polarstem size 1 standard [employer] Nephew R3, 3 hole acetabular shell, 48 mm [employer]hew reflection 6.5 mm cancellus screw, 20 mm 2 [employer]hew R3, XLPE 20 acetabular liner [employer]hew Oxinium femoral head 32 m, +0 All components were press-fit. The articulation is Oxinium on polyethylene. Anesthesia: spinal Surgeon: Rm Dove Trimmer Loader #1: Cuca Donovan Estimated Blood Loss (ml): 100 Pathology: other (Femoral head) Condition: stable Disposition: PACU Indications for Procedure: After failure of conservative treatment we discussed the surgical and nonsurgical treatment options at length. Patient wishes to proceed with a total hip arthroplasty with a direct anterior approach. Complications specific to this procedure were discussed at length, including but not limited to infection, leg length discrepancy, dislocation, and nerve injury. Covid-19 was also discussed at length with the patient, and they are aware of the current policies and procedures. The patient was given the option of delaying surgery, but they elect to proceed knowing these risks. Patient is aware of all these complications and informed consent was obtained Operative Findings: The operative findings are consistent with severe osteoarthritis of the right hip Description of Procedure: Patient was seen and evaluated in the preoperative area, consent was reviewed, and the surgical site was marked with a skin marker. Patient was then brought to the operating room and given prophylactic antibiotics intravenously. 1 g of Tranexamic acid was also given. A spinal anesthetic was administered by the anesthesia department. The patient was then placed on the [place] table with the bony prominences well-padded. The hip area was then prepped and draped in usual sterile fashion. A universal timeout was then performed, which confirmed the patient's name, surgical site, ALLERGIES, and procedure being performed. Next the incision site was located at 1 cm distal and 1 cm lateral to the anterior superior iliac spine. The skin and subcutaneous tissues were sharply incised. Incision was carefully dissected down to the fascia overlying the tensor fascia elvis muscle. This fascia was then incised in line with the incision. Next, using blunt finger dissection, the tensor fascia elvis muscle was dissected off its investing fascia. The muscle was then carefully retracted laterally with a cobra retractor over the lateral neck of the femur. Next, the circumflex vessels were identified and cauterized using the AquaMantis device. The anterior hip capsule was then exposed. The capsule was then opened and an inverted T fashion. Cobra retractors were then placed intracapsularly. The proximal femur was then visualized. The femoral neck was then osteotomized appropriate level above the lesser trochanter. Small amount of traction was placed with the [place] table. A small wedge of bone was then removed from the remaining femoral head. Next, using a corkscrew femoral head was easily removed from the acetabulum. On gross visual inspection, the femoral head had complete loss of articular cartilage in multiple periarticular osteophytes. Attention was then turned to the acetabulum. the acetabulum was exposed and any remaining labrum was excised. Sequential reaming of the acetabulum was performed using fluoroscopic guidance. When the appropriate size was reached, a trial was then placed. The position and fit of the trial was checked with fluoroscopy. The trial was then removed. Then, using fluoroscopic guidance, the final implant was impacted at 20 of anteversion and 40 of abduction, and fully seated in the acetabulum. 2 screws were then placed in the acetabulum. Again fluoroscopy was used to check position of the screws. Next, the liner was then impacted, with a 20 elevated liner located in the anterior superior quadrant. Component locking was confirmed. Attention was then directed to the femur. With the aid of the [place] table, the femur was externally rotated to approximately 130, extended, and abducted under the opposite leg. A side hook was then placed under the proximal femur, and the side hook elevator was used to elevate the proximal femur. Retractors were then placed. A capsular release was performed, as well as a release of the conjoined tendon, which afforded excellent visualization of the proximal femur. Next, a box osteotome was used to lateralize the proximal femur. A tile molder hand was then used to locate the femoral canal. Sequential broaching was then performed with appropriate size which afforded excellent fixation in the proximal femur. A trial was then placed with appropriate head and neck, and the hip was gently reduced with the aid of the [place] table. Fluoroscopy was then used to check position of the components, as well as to ensure equal leg lengths. The hip was then gently dislocated and the trials were then removed. Final implants were then impacted and the hip was again reduced. Final fluoroscopic x-rays confirmed that the components were in anatomic position, as well as equal leg lengths. The hip was also taken through range of motion, and found to be stable. The hip was then copiously irrigated with antibiotic solution with pulsatile lavage. The hip was then irrigated with Irrisept solution. The soft tissues were then injected with a ropivacaine solution, which consisted of 246.25 mg of ropivacaine, 0.5 mg of epinephrine, 30 mg of Toradol, 80 g of clonidine, and 48.45 mL of sterile water, for a total of 100 mL of fluid injected. A second dose of 1 g of Tranexamic acid was also given. the fascia was then closed with 2-0 strata fix suture. The subcutaneous tissue was closed with 3-0 Vicryl. The subcuticular tissue was closed with 3-0 strata fix suture. The skin was then closed with Dermabond glue and a sterile silver dressing. The patient was then transferred to the recovery room in stable condition. The case management assistant BISHOP Gonzales was required due to the complexity of surgery, and the need for skilled surgical supply assistant for positioning, draping, exposure, retraction, and closure of the wound.
--- NOTE | 2020-06-17 08:37 | XR ---
Limited right hip history: Anterior hip replacement 2 intraoperative C-arm images document the procedure.
--- NOTE | 2020-06-17 08:37 | FL ---
Fluoroscopy HISTORY: Right hip arthroplasty 44 seconds fluoroscopy time supplied to the referring clinician. 2 intraoperative C-arm images docum ent the procedure. See dictated report from orthopedic surgery.
[2020-06-17] MEDS ORDERED: LACTATED RINGERS 1,000 ML IV ONE ×2 (08:45)
[2020-06-17] MEDS ORDERED: MAGNESIUM HYDROXIDE 2,400 MG/10 ML CUP PO PRN (08:57)
[2020-06-17] MEDS ORDERED: ONDANSETRON 4 MG/2 ML VIAL IVP PRN (08:57)
[2020-06-17] MEDS ORDERED: NALOXONE 0.4 MG/ML 1 ML VIAL IV PRN (08:57)
[2020-06-17] MEDS ORDERED: diazePAM 5 MG TAB PO PRN (08:57)
[2020-06-17] MEDS ORDERED: hydrOXYzine pamoate 25 MG CAP PO PRN (08:57)
[2020-06-17] MEDS ORDERED: HYDROcodone/APAP 5-325MG 1 EACH TAB PO PRN (08:57)
--- NOTE | 2020-06-17 09:07 | XR ---
Limited right hip HISTORY: Status post right hip arthroplasty Single frontal view of the right hip Patient is status post right hip arthroplasty. There is lucency in the soft tissues. Anatomic alignme nt is noted. Small ossific fragment is present lateral to the proximal femoral metaphysis which may b e postoperative. IMPRESSION: Orthopedic follow-up. Additional findings above.
[2020-06-17] MEDS ORDERED: PANTOPRAZOLE 40 MG TABLET PO PRN (11:10)
[2020-06-17] MEDS ORDERED: CYCLOBENZAPRINE 5 MG TAB PO PRN (11:10)
[2020-06-17] MEDS: HYDROcodone/APAP 5-325MG 1 EACH TAB PO PRN ×2 (14:27→20:41)
[2020-06-17] MEDS ORDERED: HYOSCYAMINE SULFATE 0.375 MG TAB.ER.12H PO PRN (18:59)
[2020-06-17] MEDS: SODIUM CHLORIDE 0.9% 1,000 ML IV SCH ×2 (20:02→20:18)
[2020-06-17] MEDS: ASPIRIN 325 MG TAB PO SCH (20:18)
[2020-06-17] MEDS ORDERED: MONTELUKAST 10 MG TAB PO SCH (21:00)
[2020-06-17] MEDS ORDERED: LOSARTAN 50 MG TAB PO SCH (21:00)
[2020-06-17] MEDS ORDERED: NON FORMULARY DRUG (Aspirin Ec 81 MG Tablet.Dr) PO SCH (21:00)
[2020-06-17] MEDS ORDERED: SENNOSIDES-DOCUSATE SODIUM 1 EACH TAB PO SCH (21:00)
[2020-06-17] MEDS: SYMBICORT 160-4.5 MCG INHALER INHALATION SCH (21:24)
--- NOTE | 2020-06-17 22:15 | P.CONS ---
History of Present Illness - Reason for Consult Consult date: 06/17/20 Medical management Requesting physician: Rm Dove - Chief Complaint Right total hip arthroplasty, asthma, hypertension, hyperlipidemia and hypo - History of Present Illness 69-year-old female one of my office as medical history of asthma, hypertension hyperlipidemia hypothyroidism and severe gastroesophageal reflex syndrome has been having severe pain and arthritis of the right hip for the last 2 years with failure to conservative management. Patient was seen orthopedic and scheduled for elective surgery which was supposed to be done 2 weeks ago with patient came up with acute urinary tract infection require antibiotic for over 1 week symptom finally were resolve patient urine was negative patient was hospitalized today had her surgery successfully with no major complication was admitted to the floor afterward pain is under well control and patient is hemodynamically stable. Review of Systems CONSTITUTIONAL: Well-developed no acute respiratory distress. EYES: No icterus sclerae, no conjunctivitis. EARS, NOSE, MOUTH, THROAT, and FACE: No sore throat, lymphadenopathy, carotid bruits or deformity. RESPIRATORY: No SOB cough or wheezes. CARDIOVASCULAR: No CP, Palpitation, PND, Orthopnea, or angina. GASTROINTESTINAL: No Abd pain, Nausea or vomiting, no Diarrhea or constipation, No GI Bleed, no distention or masses. Mild heartburn GENITOURINARY: Negative for Hematuria or UTI, no kidney stones. INTEGUMENT/BREAST: Negative for any muscular injury with mild osteoarthritis.. Mild swelling and discomfort in the right hip area HEMATOLOGIC/LYMPHATIC: Negative for bleed or purpura. MUSCULOSKELTAL: Negative for Myalgia or arthralgia. NEURLOGICAL: No LOC, Sz or syncope, blurred vision dizziness or abnormality.. BEHAVIORAL/PSYCH: Negative. ENDOCRINE: Negative. Past Medical History Past Medical History: Asthma, GERD/Reflux, Hyperlipidemia, Hypertension, Osteoarthritis (OA), Thyroid Disorder Additional Past Medical History / Comment(s): Hx. of Irritable Bowel Syndrome History of Any Multi-Drug Resistant Organisms: None Reported Past Surgical History: Appendectomy, Heart Catheterization, Tonsillectomy, Tubal Ligation Additional Past Surgical History / Comment(s): Sinus Surgery; cervical fusion, hip surgery Past Anesthesia/Blood Transfusion Reactions: Motion Sickness Additional Past Anesthesia/Blood Transfusion Reaction / Comm: HX: VERTIGO Past Psychological History: No Psychological Hx Reported Smoking Status: Never smoker Past Alcohol Use History: Rare Past Drug Use History: None Reported - Past Family History Father Family Medical History: Cancer Additional Family Medical History / Comment(s): Leukemia,LYMPHOMA Mother Family Medical History: Hyperlipidemia Additional Family Medical History / Comment(s): heart valve problems, sciatica. Medications and Allergies Home Medications Medication Instructions Recorded Confirmed Type Cyclobenzaprine [Flexeril] 5 mg PO BID PRN 06/11/14 06/17/20 History Aspirin EC [Ecotrin Low Dose] 81 mg PO HS 09/28/16 06/13/20 History Montelukast [Singulair] 10 mg PO HS 09/28/16 06/17/20 History Levothyroxine Sodium [Synthroid] 50 mcg PO QAM 05/22/19 06/17/20 History Calcium Carbonate [Calcium] 300 mg PO DAILY 05/26/19 06/13/20 History Inulin/Chromium Picolinate [Fiber 2 tab PO DAILY 05/26/19 06/17/20 History Gummies Chew] Hyoscyamine Sulfate [Levbid] 0.375 mg PO DAILY PRN 07/26/19 06/17/20 History Pantoprazole [Protonix] 40 mg PO HS PRN 07/26/19 06/17/20 History Telmisartan [Micardis] 40 mg PO HS 07/26/19 06/17/20 History Fluticasone/Salmeterol 1 puff INHALATION BID 09/20/19 06/17/20 History [Fluticasone-Salmeterol 232-14] Metoprolol Succinate [Toprol XL] 25 mg PO QAM 05/24/20 06/17/20 History Allergies Allergy/AdvReac Type Severity Reaction Status Date / Time codeine Allergy Rash/Hives Verified 06/17/20 06:22 Sulfa (Sulfonamide Allergy Rash/Hives Verified 06/17/20 06:22 Antibiotics) ibuprofen [From Motrin] AdvReac Nausea, Verified 06/17/20 06:22 GERD Physical Exam Vitals: Vital Signs Temp Pulse Pulse Resp BP BP Pulse Ox 06/17/20 16:00 59 L 18 06/17/20 14:49 98.2 F 59 L 18 123/83 96 06/17/20 11:45 69 150/88 06/17/20 11:30 70 155/82 06/17/20 11:15 69 130/77 06/17/20 11:00 70 136/83 06/17/20 10:45 67 129/76 06/17/20 10:30 98.7 F 81 16 156/77 95 06/17/20 10:00 58 L 16 144/71 97 06/17/20 09:34 52 L 16 144/67 94 L 06/17/20 09:15 62 16 141/70 95 06/17/20 09:00 50 L 16 139/66 100 06/17/20 08:45 49 L 16 145/71 100 06/17/20 08:32 97.6 F 67 14 160/72 97 06/17/20 06:20 98.8 F 68 16 130/78 95 Intake and Output 06/17/20 06/17/20 06/17/20 06:59 14:59 22:59 Intake Total 100 1301 Output Total 100 Balance 100 1201 Intake: IV 100 1051 Oral 250 Output: Estimated Blood Loss 100 Other: Weight 82.9 kg 82.9 kg General Appearance: Alert, cooperative, no distress, appears stated age. Neck HEENT: Supple, no lymphadenopathy, no thyroid enlargement, no carotid bruits. Lungs: Clear to auscultation without crackles or wheezes no rhonchi, no deformity. Chest Wall: Chest wall normal expansion with deep inspiration no tenderness and no deformity was found on exam, no costochondral pain or discomfort. Heart: Regular rate and rhythm, S1, S2 normal, no murmur, rub or gallop. Back: Symmetric, no curvature, ROM normal, no CVA tenderness. Abdomen: Soft, non-tender, bowel sounds active all four quadrants, no masses, no organomegaly. Extremities: Extremities normal, atraumatic, no cyanosis or edema. Incision in the right hip as an interior with mild edema slight swelling no redness tenderness or warmness no sign of infection no drainage or induration. Pulses: 2+ and symmetric. Skin: Skin color, texture, tugor normal, no rashes or lesions. Neurologic: Alert oriented x3 cranial nerves II through XII intact, no motor deficit, no abnormal balance or gait. Assessment and Plan Assessment: 1 post direct approach anterior right total hip arthroplasty: Successful surgery so far patient is doing well resume home meds continue to watch patient hemodynamic status, DVT, GI and pulmonary prophylaxis protocol. 2 hypertension: Has been doing well on myocardial is 40 mg a day along with metoprolol succinate 25 mg daily. 3 hyperlipidemia: On diet control currently. 4 hypothyroidism: Continue patient on Synthroid 50 g daily. 5 arrhythmia bowel syndrome: Has been on Levbid 0.375 mg twice a day as needed. 6 history of asthma: Has been on Advair along with Singulair regularly. 7 chronic pain syndrome: Has been on Flexeril and Tylenol. 8 severe GERD/GI prophylaxis: Continue patient on pantoprazole 40 mg daily. 9 DVT prophylaxis: Patient will be on heparin subcutaneous along with aspirin when she is discharged. CODE STATUS: Full code. Dr. Dove thank you much for the consult more than happy to see this patient along with you in the hospital if I can be any further help to please let me know
[2020-06-18] MEDS: HYDROcodone/APAP 5-325MG 1 EACH TAB PO PRN (05:31)
[2020-06-18 06:29] LABS: Basophils % (A) 0 %; Eosinophils % (A) 0 %; HCT 32.9 % (34.0-46.0); HGB 10.7 gm/dL (11.4-16.0); Lymphocytes # (A) 1.7 k/uL (1.0-4.8); Lymphocytes % (A) 16 %; MCH 29.4 pg (25.0-35.0); MCHC 32.6 g/dL (31.0-37.0); MCV 90.2 fL (80.0-100.0); Mean Platelet Volume 6.8; Monocytes # (A) 0.6 k/uL (0-1.0); Monocytes % (A) 6 %; Neutrophils # (A) 7.9 k/uL (1.3-7.7); Neutrophils % (A) 74 %; Platelet Count 300 k/uL (150-450); RBC 3.65 m/uL (3.80-5.40); RDW 13.5 % (11.5-15.5); WBC 10.7 k/uL (3.8-10.6)
[2020-06-18] MEDS ORDERED: LEVOTHYROXINE 50 MCG TAB PO SCH (06:30)
[2020-06-18 08:08] VITALS: BP 139/81; PULSE 68; RESP 18; TEMP 97.9
[2020-06-18] MEDS: SYMBICORT 160-4.5 MCG INHALER INHALATION SCH (08:15)
[2020-06-18] MEDS: ASPIRIN 325 MG TAB PO SCH (08:58)
[2020-06-18] MEDS ORDERED: METOPROLOL SUCCINATE (ER) 25 MG TAB.ER.24H PO SCH (09:00)
[2020-06-18] MEDS ORDERED: MELOXICAM 7.5 MG TAB PO SCH (09:00)
[2020-06-18] MEDS ORDERED: CALCIUM CARBONATE 500 MG CHEWABLE PO SCH (09:00)
--- NOTE | 2020-06-18 09:16 | US ---
EXAMINATION TYPE: US venous doppler duplex LE RT DATE OF EXAM: 06/18/2020 8:11 AM COMPARISON: NONE CLINICAL HISTORY: post RTHA, pain. SIDE PERFORMED: Right TECHNIQUE: The lower extremity deep venous system is examined utilizing real time linear array sonog sandi with graded compression, doppler sonography and color-flow sonography. VESSELS IMAGED: External Iliac Vein (EIV) Common Femoral Vein Deep Femoral Vein Greater Saphenous Vein * Femoral Vein Popliteal Vein Small Saphenous Vein * Proximal Calf Veins (* superficial vessels) Right Leg: Negative for DVT IMPRESSION: 1. Right lower extremity ultrasound negative for deep venous thrombosis.
--- NOTE | 2020-06-18 10:03 | P.PN ---
Subjective Progress Note Date: 06/18/20 History of present illness 69-year-old female one of my office as medical history of asthma, hypertension hyperlipidemia hypothyroidism and severe gastroesophageal reflex syndrome has been having severe pain and arthritis of the right hip for the last 2 years with failure to conservative management. Patient was seen orthopedic and scheduled for elective surgery which was supposed to be done 2 weeks ago with patient came up with acute urinary tract infection require antibiotic for over 1 week symptom finally were resolve patient urine was negative patient was hospitalized today had her surgery successfully with no major complication was admitted to the floor afterward pain is under well control and patient is hemodynamically stable. 06/18: The patient states that she did not get much sleep last night due to interruptions. Pain is currently controlled. She is utilizing incentive spirometry. She was up yesterday with physical therapy and did well. She states she had some dizziness this morning after taking [place] 52 tablets and recommend taking only one at a time. She has been afebrile, heart rate 79, blood pressure 114/69, pulse ox 96% on room air. WBC 10.7, hemoglobin 10.7, platelet count 300. Medication reconciliation will be reviewed. Patient is cleared for discharge from medicine. Review of systems CONSTITUTIONAL: Well-developed no acute respiratory distress. Denies fever, denies chills. EYES: No icterus sclerae, no conjunctivitis. EARS, NOSE, MOUTH, THROAT, and FACE: No sore throat, lymphadenopathy, carotid bruits or deformity. RESPIRATORY: No SOB cough or wheezes. CARDIOVASCULAR: No CP, Palpitation, PND, Orthopnea, or angina. GASTROINTESTINAL: No Abd pain, Nausea or vomiting, no Diarrhea or constipation, No GI Bleed, no distention or masses. Mild heartburn GENITOURINARY: Negative for Hematuria or UTI, no kidney stones. INTEGUMENT/BREAST: Negative for any muscular injury with mild osteoarthritis.. Mild swelling and discomfort in the right hip area HEMATOLOGIC/LYMPHATIC: Negative for bleed or purpura. MUSCULOSKELTAL: Negative for Myalgia or arthralgia. NEURLOGICAL: No LOC, Sz or syncope, blurred vision dizziness or abnormality.. BEHAVIORAL/PSYCH: Negative. ENDOCRINE: Negative. Physical examination General Appearance: Alert, cooperative, no distress, appears stated age. Neck HEENT: Supple, no lymphadenopathy, no thyroid enlargement, no carotid bruits. Lungs: Clear to auscultation without crackles or wheezes no rhonchi, no deformity. Chest Wall: Chest wall normal expansion with deep inspiration no tenderness and no deformity was found on exam, no costochondral pain or discomfort. Heart: Regular rate and rhythm, S1, S2 normal, no murmur, rub or gallop. Back: Symmetric, no curvature, ROM normal, no CVA tenderness. Abdomen: Soft, non-tender, bowel sounds active all four quadrants, no masses, no organomegaly. Extremities: Extremities normal, atraumatic, no cyanosis or edema. Incision in the right hip as an interior with mild edema slight swelling no redness tenderness or warmth no sign of infection no drainage or induration. Pulses: 2+ and symmetric. Skin: Skin color, texture, tugor normal, no rashes or lesions. Neurologic: Alert oriented x3 cranial nerves II through XII intact, no motor deficit, no abnormal balance or gait. Assessment and plan 1 post direct approach anterior right total hip arthroplasty: Successful surgery so far patient is doing well resume home meds continue to watch patient hemodynamic status, DVT, GI and pulmonary prophylaxis protocol. Patient's had no postop complications. 2 hypertension: Has been doing well on myocardial is 40 mg a day along with metoprolol succinate 25 mg daily. 3 hyperlipidemia: On diet control currently. 4 hypothyroidism: Continue patient on Synthroid 50 g daily. 5 arrhythmia bowel syndrome: Has been on Levbid 0.375 mg twice a day as needed. 6 history of asthma: Has been on Advair along with Singulair regularly. 7 chronic pain syndrome: Has been on Flexeril and Tylenol. 8 severe GERD/GI prophylaxis: Continue patient on pantoprazole 40 mg daily. 9 DVT prophylaxis: Patient will be on heparin subcutaneous along with aspirin when she is discharged. CODE STATUS: Full code. Discharge plan: home with homecare. Impression and plan of care have been directed as dictated by the signing physician. Nohemy Duong nurse practitioner acting as scribe for signing physician. Objective - Vital Signs Vital signs: Vital Signs Temp 97.8 F 06/18/20 03:13 Pulse 79 06/18/20 03:13 Resp 17 06/18/20 04:26 BP 114/69 06/18/20 03:13 Pulse Ox 96 06/18/20 03:13 Intake & Output 06/17/20 06/18/2006/18/20 18:59 06:59 18:59 Intake Total 1301 Output Total 100 Balance 1201 Weight 82.9 kg Intake: IV 1051 Oral 250 Output: Estimated Blood Loss 100 Other: Voiding Method Toilet # Voids 1 - Labs CBC & Chem 7: 06/18/20 05:58 Labs: Abnormal Lab Results - Last 24 Hours (Table) 06/18/20 Range/Units 05:58 WBC 10.7 H (3.8-10.6) k/uL RBC 3.65 L (3.80-5.40) m/uL Hgb 10.7 L (11.4-16.0) gm/dL Hct 32.9 L (34.0-46.0) % Neutrophils # 7.9 H (1.3-7.7) k/uL
[2020-06-18 10:29] LABS: Appearance,Urine Clear (Clear); Bilirubin,Urine Negative (Negative); Blood,Urine Negative (Negative); Color,Urine Light Yellow; Glucose,Urine (UA) Negative (Negative); Ketones,Urine Negative (Negative); Leukocyte Esterase,Urine Trace (Negative); Nitrite,Urine Negative (Negative); PH, Urine 6.5 (5.0-8.0); Protein,Urine Negative (Negative); RBC,Urine <1 /hpf (0-5); Specific Gravity,Urine 1.006 (1.001-1.035); Squamous Epithelial Cell,Urine <1 /hpf (0-4); Urobilinogen,Urine <2.0 mg/dL (<2.0); WBC,Urine 1 /hpf (0-5)
--- NOTE | 2020-06-18 15:38 | P.DS ---
Providers Expected date of discharge: 06/18/20 Attending physician: Rm Dove Consults: 06/17/20 08:57 Consult Physician Routine Consulting Provider: Josh Ty Reason/Comments: medical management Do you want consulting provider notified?: Yes Primary care physician: Josh Ty - Discharge Diagnosis(es) (1) Osteoarthritis of right hip Status: Acute (2) Status post total hip replacement, right Status: Acute Hospital Course: This is a 69-year-old female with known history of degenerative arthritis of the right hip. The patient presents for evaluation. After discussion and consideration patient elects to proceed with total hip arthroplasty. The patient is seen preoperatively by Dr. Dove and medically cleared for surgery by their primary care physician. Patient is admitted to [facility] on 06/17/2020 for total hip arthroplasty. The procedures performed without complication or sequelae. The patient is doing well postoperatively. Labs and vital signs are stable on day of discharge. On day of discharge patient's hip incision is healing well. There is minimal erythema. There is no drainage noted at this time. There is minimal soft tissue swelling to the hip and thigh. Patient has full foot and ankle motion without difficulty or pain. Calf is soft and nontender to palpation. Neurovascular status to the right lower extremity is intact. Patient is discharged home in good condition. Opioid start talking form is reviewed and signed. Please see med rec for accurate list of home medications. Plan - Discharge Summary Discharge Rx Participant: No New Discharge Prescriptions: New Aspirin 325 mg PO BID #60 tab HYDROcodone/APAP 5-325MG [Kindred 5-325] 1 - 2 tab PO Q6HR PRN #48 tab PRN Reason: Pain Sennosides [Senokot] 2 tab PO DAILY PRN #60 tablet PRN Reason: Constipation No Action Cyclobenzaprine [Flexeril] 5 mg PO BID PRN PRN Reason: Pain Montelukast [Singulair] 10 mg PO HS Aspirin EC [Ecotrin Low Dose] 81 mg PO HS Levothyroxine Sodium [Synthroid] 50 mcg PO QAM Calcium Carbonate [Calcium] 300 mg PO DAILY Inulin/Chromium Picolinate [Fiber Gummies Chew] 2 tab PO DAILY Telmisartan [Micardis] 40 mg PO HS Pantoprazole [Protonix] 40 mg PO HS PRN PRN Reason: acid reflux Hyoscyamine Sulfate [Levbid] 0.375 mg PO DAILY PRN PRN Reason: ibs Fluticasone/Salmeterol [Fluticasone-Salmeterol 232-14] 1 puff INHALATION BID Metoprolol Succinate [Toprol XL] 25 mg PO QAM Discharge Medication List Cyclobenzaprine [Flexeril] 5 mg PO BID PRN 06/11/14 [History] Aspirin EC [Ecotrin Low Dose] 81 mg PO HS 09/28/16 [History] Montelukast [Singulair] 10 mg PO HS 09/28/16 [History] Levothyroxine Sodium [Synthroid] 50 mcg PO QAM 05/22/19 [History] Calcium Carbonate [Calcium] 300 mg PO DAILY 05/26/19 [History] Inulin/Chromium Picolinate [Fiber Gummies Chew] 2 tab PO DAILY 05/26/19 [History] Hyoscyamine Sulfate [Levbid] 0.375 mg PO DAILY PRN 07/26/19 [History] Pantoprazole [Protonix] 40 mg PO HS PRN 07/26/19 [History] Telmisartan [Micardis] 40 mg PO HS 07/26/19 [History] Fluticasone/Salmeterol [Fluticasone-Salmeterol 232-14] 1 puff INHALATION BID 09/20/19 [History] Metoprolol Succinate [Toprol XL] 25 mg PO QAM 05/24/20 [History] Aspirin 325 mg PO BID #60 tab 06/18/20 [Rx] HYDROcodone/APAP 5-325MG [Kindred 5-325] 1 - 2 tab PO Q6HR PRN #48 tab 06/18/20 [Rx] Sennosides [Senokot] 2 tab PO DAILY PRN #60 tablet 06/18/20 [Rx] Follow up Appointment(s)/Referral(s): Josh Ty MD [Primary Care Provider] - 06/24/20 2:00 pm [facility], [NON-STAFF] - Rm Dove DO [Doctor of Osteopathic Medicine] - 06/28/20 9:00 am Patient Instructions/Handouts: Anterior Hip Replacement (DC) Activity/Diet/Wound Care/Special Instructions: Hold aspirin 81 mg while on 325 mg twice daily. Weightbearing as tolerated with walker. Please take aspirin 325mg twice daily to prevent blood clots. Leave dressing intact for 10 days. May be removed by you or the home care nurse. May shower with dressing in place. Please wear compressoin stockings daily for 2 weeks to prevent blood clots. May remove at night. Please follow up with [facility] and call with any questions or concerns, . Discharge Disposition: HOME WITH HOME HEALTH SERVICES
== END 2020-06-18 11:02 | disposition home health service (06) ==
LOC: OR 05:45 → 4SSUR 10:02 → OR 06-18 11:02
PROVIDERS: ATTEND Orthopaedic Surgery
DX: M16.11 Unilateral primary osteoarthritis, right hip (principal); E03.9 Hypothyroidism, unspecified; R00.2 Palpitations; E78.5 Hyperlipidemia, unspecified; H91.90 Unspecified hearing loss, unspecified ear; R51.9 Headache, unspecified; K58.9 Irritable bowel syndrome, unspecified; I10 Essential (primary) hypertension; K25.9 Gastric ulcer, unspecified as acute or chronic, without hemorrhage or perforation; R26.81 Unsteadiness on feet; J45.909 Unspecified asthma, uncomplicated; Z97.3 Presence of spectacles and contact lenses; Z98.890 Other specified postprocedural states; Z98.1 Arthrodesis status; Z78.0 Asymptomatic menopausal state; Z83.3 Family history of diabetes mellitus; Z82.5 Family history of asthma and other chronic lower respiratory diseases; Z82.49 Family history of ischemic heart disease and other diseases of the circulatory system; Z80.51 Family history of malignant neoplasm of kidney; Z83.42 Family history of familial hypercholesterolemia; Z82.61 Family history of arthritis; Z82.0 Family history of epilepsy and other diseases of the nervous system; Z83.79 Family history of other diseases of the digestive system; Z79.890 Hormone replacement therapy; Z79.899 Other long term (current) drug therapy; Z79.51 Long term (current) use of inhaled steroids; Z79.82 Long term (current) use of aspirin; Z88.1 Allergy status to other antibiotic agents; Z88.2 Allergy status to sulfonamides; Z88.5 Allergy status to narcotic agent; Z91.018 Allergy to other foods
CPT/HCPCS: 27130; 97116; 97110; 97161; 97165; 86891; 86900; 86901; 85025; 86850; 81001; 88300; 73501; 73502; 93971; C1776; J2250; J0171; J1644; J1100; J0690 ×3; J2405; J3010; J1885; J2795; J2704; J0735

== ENCOUNTER → 2020-07-08 | Outpatient (CLI) | payer MEDICARE ==
--- NOTE | 2020-07-08 12:53 | US ---
EXAMINATION TYPE: US thyroid st tissue head/neck DATE OF EXAM: 07/08/2020 06/06/2019 COMPARISON: 06/06/2019 CLINICAL HISTORY: 69-year-old female E04.2 Nontoxic multinodular goiter. TECHNIQUE: Multiple sonographic images of the thyroid gland are obtained. FINDINGS: Right Lobe: 4.9 x 2.2 x 1.6 cm Overall Parenchyma: heterogenous Left Lobe: 3.7 x 1.5 x 1.3cm Overall Parenchyma: heterogeneous Isthmus Thickness: 0.3 cm NODULES RIGHT: # of nodules measured on right: 2 1. 1.8 x1.8 x 1.5 cm mixed nodule at the mid pole with well-defined margins. This nodule is taller th an wide and shows no intranodular vascularity. Prior size: 1.6 x 1.2 x 1.6 2. 0.9 x 0.6 x 0.8 cm solid nodule at the lower pole with well-defined margins. This nodule is wide a s tall and shows no intranodular vascularity. Prior size: 1.1 X 0.8 x 0.8 cm LEFT: # of nodules measured on left: 2 1. 1.5 x 0.9 x 1.1cm solid nodule at the mid pole with well-defined margins. This nodule is wider letty n tall and shows intranodular vascularity. Prior size: 1.7 X 1.2 x 0.8 2. 1.0 x 0.8 x 1.0 cm solid nodule at the lower pole with well-defined margins. This nodule is wider than tall and shows no intranodular vascularity. Prior size: 0.6 X 0.6 x 0.5 ISTHMUS: # of nodules measured in the isthmus: 0 Bilateral neck scanned, no evidence of lymphadenopathy. IMPRESSION: 1. Findings likely represent multinodular goiter. 2. Dominant nodule at the right midpole is stable to minimally larger at 1.8 x 1.8 cm (versus 1.6 x 1 .6 cm, previously). 3. Another nodule on the left is slightly larger at 1.0 x 1.0 cm (versus 0.6 x 0.6 cm, previously).
== END | disposition home or self-care (01) ==
LOC: RADUSWWP 09:55
PROVIDERS: ATTEND Internal Medicine Geriatric Medicine
DX: E04.2 Nontoxic multinodular goiter (principal)
CPT/HCPCS: 76536

== ENCOUNTER → 2021-05-13 | Outpatient (CLI) | payer MEDICARE ==
--- NOTE | 2021-05-15 10:14 | MM ---
Reason for exam: screening (asymptomatic). Last mammogram was performed 1 year ago. History: Patient is postmenopausal and has history of high-risk lesion on a previous biopsy at age 56. Family history of breast cancer in paternal grandmother. Benign MG stereo VAD BX RT of the right breast, May 26, 2019. Benign stereotactic core biopsy of the left breast, May 2015. Benign right mammotome panel of the right breast, July 24, 2013. Excisional biopsy of the left breast, March 18, 2007. High risk left mammotome panel of the left breast, February 28, 2007. Took estrogen for 2 years beginning at age 51. Physical Findings: A clinical breast exam by your physician is recommended on an annual basis and results should be correlated with mammographic findings. MG 3D Screening Mammo W/Cad Bilateral CC and MLO view(s) were taken. Prior study comparison: April 29, 2020, bilateral MG 3d screening mammo w/cad. February 14, 2020, right breast MG 3d diag mammo w/cad RT. April 26, 2019, bilateral MG 3d screening mammo w/cad. April 05, 2018, bilateral MG 3d screening mammo w/cad. The breast tissue is heterogeneously dense. This may lower the sensitivity of mammography. No significant changes when compared with prior studies. ASSESSMENT: Benign, BI-RAD 2 RECOMMENDATION: Routine screening mammogram of both breasts in 1 year.
== END | disposition home or self-care (01) ==
LOC: RADMAMWWP 14:48
PROVIDERS: ATTEND Internal Medicine Geriatric Medicine
DX: Z12.31 Encounter for screening mammogram for malignant neoplasm of breast (principal); Z78.0 Asymptomatic menopausal state; Z80.3 Family history of malignant neoplasm of breast; Z79.818 Long term (current) use of other agents affecting estrogen receptors and estrogen levels
CPT/HCPCS: 77063; 77067

== ENCOUNTER → 2021-08-22 | Outpatient (CLI) | payer MEDICARE ==
--- NOTE | 2021-08-22 16:37 | US ---
EXAMINATION TYPE: US thyroid st tissue head/neck DATE OF EXAM: 08/22/2021 COMPARISON: US 07/08/2020 CLINICAL HISTORY: E04.2 Nontoxic multinodular goiter. GLAND SIZE: Right Lobe: 4.6 x 2.3 x 1.9 cm Overall Parenchyma: heterogenous Left Lobe: 4.3 x 1.5 x 1.6 cm Overall Parenchyma: heterogeneous Isthmus Thickness: 0.3 cm NODULES RIGHT: # of nodules measured on right: 2 1. 1.7 X 1.7 x 1.3 cm, upper mid, solid or almost completely solid, isoechoic nodule, which is wide r than tall, with smooth margins, without echogenic foci. Prior size: 1.8 x 1.8 x 1.5 cm 2. 1.0 X 0.8 x 0.8 cm, lower mid, solid or almost completely solid, hypoechoic nodule, which is wid er than tall, with ill-defined margins, without echogenic foci. TR 4 Prior size: 0.9 x 0.6 x 0.8 cm LEFT: # of nodules measured on left: 1 1. 1.8 X 1.0 x 1.2 cm, mid mid, solid or almost completely solid, hypoechoic nodule, which is wider than tall, with smooth margins, without echogenic foci. This has increased in size over the interval . TR 4 Prior size: 1.5 x 0.9 x 1.1 cm ISTHMUS: # of nodules measured in the isthmus: 0 Bilateral neck scanned, no evidence of lymphadenopathy. IMPRESSION: 1. Moderately suspicious nodule left lobe thyroid. Fine-needle aspiration recommended. 2017 ACR TI-RADS LEVEL: TR-RADS 4 - Moderately Suspicious: Follow if > 1 cm, FNA if > 1.5 cm *Highest TI-RADS level nodule reported
== END | disposition home or self-care (01) ==
LOC: RADUSWWP 12:19
PROVIDERS: ATTEND Internal Medicine Geriatric Medicine
DX: E04.2 Nontoxic multinodular goiter (principal)
CPT/HCPCS: 76536

== ENCOUNTER → 2022-05-20 | Outpatient (CLI) | payer MEDICARE ==
--- NOTE | 2022-05-21 19:19 | BD ---
EXAMINATION TYPE: Axial Bone Density DATE OF EXAM: 05/20/2022 CLINICAL HISTORY: 71 year old Female. ICD-10 CODE: Z78.8 ASYMPTOMATIC MENOPAUSE,M85.88 DISORDER OF ESE Height: 63 Weight: 187.4 FRAX RISK QUESTIONS: Alcohol (3 or more units per day): no Family History (Parent hip fracture): no Glucocorticoids (More than 3mos): no (Ex: prednisone, prednisolone, methylprednisolone, dexamethasone, and hydrocortisone). History of Fracture in Adulthood: no Secondary Osteoporosis: 1. Type 1 Diabetes: no 2. Hyperthyroidism: no 3. Menopause before 45: no 4. Malnutrition: no 5. Chronic liver disease: no Rheumatoid Arthritis: no Current Tobacco Use:no RISK FACTORS HISTORY OF: Surgery to Spine/Hip(right/left)/Wrist (right/left): right hip When: 2019 Family History of Osteoporosis: yes Active: yes Diet low in dairy products/other sources of calcium: no Postmenopausal woman: yes Lost more than 2 inches in height since high school: no MEDICATIONS: Thyroid Medications: synthroid How Lon years Additional History: EXAM MEASUREMENTS: Bone mineral densitometry was performed using the [employer] System. Bone mineral density as measured about the Lumbar spine is: ----- L1-L4(G/cm2): 1.262 T Score Values are as follows: ----- L1: 0.2 ----- L2: 0.8 ----- L3: 1.0 ----- L4: 0.5 ----- L1-L4: 0.7 Bone mineral density has: increased 10.2 % since study of: 05.09.2013 Bone mineral density about the L hip (g/cm2): 0.792 T Score values are as follows: -----L Neck: -1.8 -----L Total: -1.5 Bone mineral density has: decreased -2.0 % since study of: 05.09.2013 FRAX%s: The graph provided illustrates a 10.3% chance for a major osteoporotic fx and a 1.7% chance f or the hips probability for fx in 10 years time. IMPRESSION: Osteopenia (T Score between -2.5 and -1). There is slightly increased risk of fracture and the patient may be considered for treatment. Re-Screen 2-5 years. NOTE: T-SCORE=SD OF THE YOUNG ADULT MEAN.
--- NOTE | 2022-05-29 09:49 | MM ---
Reason for Exam: Screening (asymptomatic). Last mammogram was performed 1 year(s) and 1 month(s) ago. Patient History: Menarche at age 13. First Full-Term at age 21. Postmenopausal. Previous Atypical Ductal Hyperplasia at age 56. Estrogen for 2 years from age 51 until age 53. 03/18/2007, Excisional Biopsy on the Left side. 05/2015, Benign Stereotactic Core Biopsy on the left side. 05/26/2019, Benign Core Biopsy on the right side. 07/24/2013, Benign Core Biopsy on the right side. 02/28/2007, High risk Core Biopsy on the left side. Paternal grandmother had breast cancer. Risk Values: Jocelyn 5 year model risk: 4.5%. NCI Lifetime model risk: 12.7%. Prior Study Comparison: 02/14/2020 Right Diagnostic Mammogram, [facility]. 04/29/2020 Bilateral Screening Mammogram, [facility]. 05/13/2021 Bilateral Screening Mammogram, [facility]. Tissue Density: The breast tissue is heterogeneously dense. This may lower the sensitivity of mammography. Findings: Analyzed By CAD. There is no suspicious group of microcalcifications or new suspicious mass in either breast. Overall Assessment: Benign, BI-RAD 2 Management: Screening Mammogram of both breasts in 1 year. A clinical breast exam by your physician is recommended on an annual basis and results should be correlated with mammographic findings. Electronically signed and approved by: Marco Mukherjee M.D. Radiologis
== END | disposition home or self-care (01) ==
LOC: RADBDWWP 09:19
PROVIDERS: ATTEND Obstetrics & Gynecology
DX: Z12.31 Encounter for screening mammogram for malignant neoplasm of breast (principal); M85.89 Other specified disorders of bone density and structure, multiple sites; Z80.3 Family history of malignant neoplasm of breast; Z78.0 Asymptomatic menopausal state
CPT/HCPCS: 77063; 77067; 77080

== ENCOUNTER 2023-07-07 10:38 | Day surgery (SDC) | payer MEDICARE ==
[2023-07-07] MEDS: LACTATED RINGERS 1,000 ML IV SCH ×2 (10:55→11:32)
[2023-07-07 11:04] VITALS: TEMP 98.2
[2023-07-07] MEDS ORDERED: LIDOCAINE 1% INJ 10MG/ML (20 ML MDV) ONE (11:33)
[2023-07-07] MEDS ORDERED: PROPOFOL 10 MG/ML 20 ML VIAL IV ONE (11:33)
--- NOTE | 2023-07-07 11:52 | P.PCN ---
Date of Procedure: 07/07/23 Procedure(s) Performed: BRIEF HISTORY: Patient is a 72-year-old pleasant white female scheduled for an elective colonoscopy as a part of evaluation of prior history of colon polyps. Last colonoscopy was 3 years ago. PROCEDURE PERFORMED: Colonoscopy. PREOPERATIVE DIAGNOSIS: History Of colon polyps. IV sedation per Anesthesia. PROCEDURE: After informed consent was obtained, the patient, was brought into the endoscopy unit. IV sedation was administered by Anesthesia under continuous monitoring. Digital rectal examination was normal. Initially the Olympus CF-160 flexible video colonoscope was then inserted in the rectum, gradually advanced into the cecum with [id number] difficulty. Careful examination was performed as the scope was gradually being withdrawn. Ileocecal valve and the appendiceal orifice were visualized and appeared normal. Prep was fair.. Mucosa of the cecum, ascending colon, transverse colon, descending colon, sigmoid colon, and rectum appeared normal. Multiple diverticula cyst. Retroflexion was performed in the rectum and no lesions were seen. The patient tolerated the procedure well. IMPRESSION: Normal-appearing colon from rectum to cecum no evidence of colorectal neoplasia . Scattered sigmoid diverticulosis. RECOMMENDATIONS: Findings of this examination were discussed with the patient as well as a family.. He was advised to have a repeat screening colonoscopy in 5 years because of the prior history of colon polyps 7
[2023-07-07 12:05] VITALS: RESP 16
[2023-07-07 12:26] VITALS: BP 156/86; PULSE 71
[2023-07-07] MEDS ORDERED: KETOROLAC 15 MG/ML 1 ML VIAL ONE (12:40)
[2023-07-07] MEDS ORDERED: KETOROLAC 15 MG/ML 1 ML VIAL IVP ONE (12:41)
== END 2023-07-07 13:01 | disposition home or self-care (01) ==
LOC: ORWHC2ENDO 10:38
PROVIDERS: ATTEND Internal Medicine Gastroenterology
DX: Z12.11 Encounter for screening for malignant neoplasm of colon (principal); K57.30 Diverticulosis of large intestine without perforation or abscess without bleeding; I10 Essential (primary) hypertension; E78.5 Hyperlipidemia, unspecified; E03.9 Hypothyroidism, unspecified; K21.9 Gastro-esophageal reflux disease without esophagitis; K58.9 Irritable bowel syndrome, unspecified; Z86.010 Personal history of colon polyps; Z88.2 Allergy status to sulfonamides; Z88.5 Allergy status to narcotic agent; Z88.6 Allergy status to analgesic agent; Z79.890 Hormone replacement therapy; Z98.890 Other specified postprocedural states; Z79.899 Other long term (current) drug therapy
CPT/HCPCS: J2001; J1885; J2704; G0105; 45378

== ENCOUNTER → 2023-07-12 | Outpatient (CLI) | payer MEDICARE ==
--- NOTE | 2023-07-12 16:35 | US ---
EXAMINATION TYPE: US thyroid st tissue head/neck DATE OF EXAM: 07/12/2023 COMPARISON: US 08/22/2021 CLINICAL INDICATION: Female, 72 years old with history of E04.2 MULTINODULAR GOITER; Goiter. Patient is on levothyroxine. Hx FNA. GLAND SIZE: Right Lobe: 5.0 x 2.0 x 2.1 cm Overall Parenchyma: heterogenous Left Lobe: 4.6 x 1.7 x 1.5 cm Overall Parenchyma: heterogenous Isthmus Thickness: 0.3 cm NODULES RIGHT: # of nodules measured on right: 3 1. 2.0 X 1.8 x 1.9 cm, upper mid, Prior size: 1.7 x 1.7 x 1.3 cm TIRADS Score: 3 TIRADS Category 3: Mildly Suspicious Composition: Solid or almost completely solid (2 points). Echogenicity: Hyperechoic or isoechoic (1 point). Shape: Wider than tall (0 points). Margin: Smooth (0 points). Echogenic foci: None or large comet-tail artifacts (0 points) Recommendation: If >2.5cm: FNA; If >1.5cm: Follow up at 1,3,5 years 2. 1.9 X 0.9 x 1.1 cm, lower medial, Prior size: 1.0 x 0.8 x 0.8 cm TIRADS Score: 4 TIRADS Category 4: Moderately Suspicious Composition: Solid or almost completely solid (2 points). Echogenicity: Hypoechoic (2 points). Shape: Wider than tall (0 points). Margin: Smooth (0 points). Echogenic foci: None or large comet-tail artifacts (0 points) Recommendation: If >1.5cm: FNA; If >1cm: Follow up at 1,2, 3,5 years 3. 1.5 X 1.2 x 0.5 cm, mid mid, Prior size: Does not correlate with prior. TIRADS Score: 4 TIRADS Category 4: Moderately Suspicious Composition: Solid or almost completely solid (2 points). Echogenicity: Hypoechoic (2 points). Shape: Wider than tall (0 points). Margin: Smooth (0 points). Echogenic foci: None or large comet-tail artifacts (0 points) Recommendation: If >1.5cm: FNA; If >1cm: Follow up at 1,2, 3,5 years LEFT: # of nodules measured on left: 1 1. 2.0 X 1.7 x 1.1 cm, mid mid, Prior size: 1.8 x 1.0 x 1.2 cm TIRADS Score: 4 TIRADS Category 4: Moderately Suspicious Composition: Solid or almost completely solid (2 points). Echogenicity: Hypoechoic (2 points). Shape: Wider than tall (0 points). Margin: Ill-defined (0 points). Echogenic foci: None or large comet-tail artifacts (0 points) Recommendation: If >1.5cm: FNA; If >1cm: Follow up at 1,2, 3,5 years ISTHMUS: # of nodules measured in the isthmus: 0 Bilateral neck scanned, no evidence of lymphadenopathy. IMPRESSION: Bilateral thyroid nodules some of which meet criteria for fine-needle aspiration if not already perfo rmed. (right thyroid nodule #2 and left thyroid nodule #1)
== END | disposition home or self-care (01) ==
LOC: RADUSWWP 14:09
PROVIDERS: ATTEND Internal Medicine
DX: E04.2 Nontoxic multinodular goiter (principal); Z79.890 Hormone replacement therapy
CPT/HCPCS: 76536

== ENCOUNTER → 2024-01-21 | Outpatient (CLI) | payer MEDICARE ==
--- NOTE | 2024-01-21 12:24 | CA ---
Transthoracic Echo Report Name: Arin Storm Age: 73 Gender: F : 1950 Exam Date: 01/21/2024 08:53 Exam Location: [facility] Ht (in): 64 Wt (lb): 175 Ordering Physician: Giorgi Rodriguez MD ([id number]) Attending/Referring Phys: Beef Selector Radha Omer RDCS Procedure CPT: Indications: I42.0 Dilated Cardiomyopathy Cardiac Hx: Technical Quality: Fair Contrast 1: Total Dose (mL): Contrast 2: Total Dose (mL): MEASUREMENTS (Male / Female) Normal Values 2D ECHO LV Diastolic Diameter PLAX 4.8 cm 4.2 - 5.9 / 3.9 - 5.3 cm LV Systolic Diameter PLAX 3.5 cm IVS Diastolic Thickness 1.5 cm 0.6 - 1.0 / 0.6 - 0.9 cm LVPW Diastolic Thickness 1.3 cm 0.6 - 1.0 / 0.6 - 0.9 cm LV Relative Wall Thickness 0.6 RV Internal Dim ED PLAX 3.5 cm LA Systolic Diameter LX 3.2 cm 3.0 - 4.0 / 2.7 - 3.8 cm LV Diastolic Volume MOD BP 60.9 cm??? 67 - 155 / 56 - 104 cm??? LV Systolic Volume MOD BP 22.1 cm??? 22 - 58 / 19 - 49 cm??? LV Ejection Fraction MOD BP 63.8 % >= 55 % LV Cardiac Index MOD BP 1317.0 cm???/min???m??? LV Diastolic Volume MOD 4C 75.0 cm??? LV Systolic Volume MOD 4C 32.4 cm??? LV Ejection Fraction MOD 4C 56.8 % LV Cardiac Index MOD 4C 1441.7 cm???/min???m??? LV Diastolic Length 4C 6.7 cm LV Systolic Length 4C 5.1 cm LV Diastolic Volume MOD 2C 48.4 cm??? LV Systolic Volume MOD 2C 14.9 cm??? LV Ejection Fraction MOD 2C 69.3 % LV Cardiac Index MOD 2C 1135.4 cm???/min???m??? LV Diastolic Length 2C 6.4 cm LV Systolic Length 2C 5.2 cm LA Volume 66.9 cm??? 18 - 58 / 22 - 52 cm??? LA Volume Index 34.9 cm???/m??? 16 - 28 cm???/m??? M-MODE Aortic Root Diameter MM 2.9 cm LA Systolic Diameter MM 4.9 cm LA Ao Ratio MM 1.7 AV Cusp Separation MM 1.9 cm DOPPLER AV Peak Velocity 168.6 cm/s AV Peak Gradient 11.4 mmHg AV Mean Velocity 114.8 cm/s AV Mean Gradient 5.9 mmHg AV Velocity Time Integral 34.9 cm LVOT Peak Velocity 112.5 cm/s LVOT Peak Gradient 5.1 mmHg LVOT Velocity Time Integral 25.4 cm MV Area PHT 2.6 cm??? Mitral E Point Velocity 85.3 cm/s Mitral A Point Velocity 102.8 cm/s Mitral E to A Ratio 0.8 MV Deceleration Time 291.7 ms MV E' Velocity 4.8 cm/s Mitral E to MV E' Ratio 17.8 TR Peak Velocity 162.9 cm/s TR Peak Gradient 10.6 mmHg Right Ventricular Systolic Press 15.3 mmHg FINDINGS Left Ventricle Moderately increased left ventricular wall thickness. Left ventricular cavity size normal. Normal left ventricular systolic function with no obvious regional wall motion abnormalities. Left ventricular ejection fraction is estimated at 55-60 %. Grade 1 diastolic dysfunction. Right Ventricle Moderate right ventricular dilatation. Right ventricular systolic pressure within normal limits. Right Atrium Normal right atrial size. Left Atrium Moderately increased left atrial volume. Mildly increased left atrial area. Mitral Valve Structurally normal mitral valve. No mitral stenosis. Mild mitral regurgitation. Aortic Valve Trileaflet aortic valve. No aortic valve stenosis or regurgitation. Tricuspid Valve Structurally normal tricuspid valve. Mild tricuspid regurgitation. Pulmonic Valve Structurally normal pulmonic valve. Trace pulmonic regurgitation. Pericardium No pericardial effusion. Echo free space anterior to the right ventricle likely represents a fat pad. Aorta Normal size aortic root and proximal ascending aorta. CONCLUSIONS Technically difficult study for interpretation Poorly visualized endocardium and intracardiac valves Normal LV systolic function. Impaired relaxation of the LV Previewed by: Dr. French Grigsby MD (Electronically Signed) Final Date: 21 Jan 2024 12:23
== END | disposition home or self-care (01) ==
LOC: RADECHMAIN 08:28
PROVIDERS: ATTEND Internal Medicine Clinical Cardiac Electrophysiology
DX: I42.0 Dilated cardiomyopathy (principal)
CPT/HCPCS: 93306

== ENCOUNTER → 2024-04-11 | Outpatient (CLI) | payer MEDICARE ==
--- NOTE | 2024-04-11 20:29 | US ---
EXAMINATION TYPE: US thyroid st tissue head/neck DATE OF EXAM: 04/11/2024 COMPARISON: US 2022 CLINICAL INDICATION: Female, 73 years old with history of E04.1 NONTOXIC SINGLE THYROID NODULE; GLAND SIZE: Right Lobe: 3.9 x 2.0 x 2.0 cm Overall Parenchyma: heterogeneous Left Lobe: 4.1 x 1.5 x 1.5 cm Overall Parenchyma: heterogeneous Isthmus Thickness: 0.2 cm NODULES RIGHT: # of nodules measured on right: diffusely heterogeneous - largest nodule described below 1. 1.6 X 1.8 x 1.4 cm, mid, solid or almost completely solid, isoechoic nodule, which is taller letty n wide, with ill-defined margins, without echogenic foci. TR 4 nodule. Prior size: 2.0 x 1.9 x 1.8 cm LEFT: # of nodules measured on left: diffusely heterogeneous - largest nodule described below 1. 1.6 X 0.6 x 0.9 cm, mid lateral, solid or almost completely solid, isoechoic nodule, which is wi angus than tall, with ill-defined margins, without echogenic foci. Prior size: 2.0 x 1.1 x 1.7 cm TR 3 nodule. ISTHMUS: # of nodules measured in the isthmus: 0 Bilateral neck scanned, no evidence of lymphadenopathy. Scanned patient's palpable at midline neck - appears wnl IMPRESSION: 1. There is interval reduction in size in largest thyroid nodules bilaterally. The right thyroid nodu le is a TR 4 nodule and meets the criteria for an FNA, however, this nodule has reduced in size padmini red to prior exam which would be atypical for a malignancy. Recommend continued surveillance. 2. Heterogeneous thyroid correlate for thyroiditis. 2017 ACR TI-RADS LEVEL: TR-RADS 4 - Moderately Suspicious: Follow if > 1 cm, FNA if > 1.5 cm *Highest TI-RADS level nodule reported
== END | disposition home or self-care (01) ==
LOC: RADUSWWP 14:46
PROVIDERS: ATTEND Internal Medicine Geriatric Medicine
DX: E04.2 Nontoxic multinodular goiter (principal)
CPT/HCPCS: 76536

== ENCOUNTER → 2024-06-15 | Outpatient (CLI) | payer MEDICARE ==
--- NOTE | 2024-06-16 14:06 | MM ---
Reason for Exam: Screening (asymptomatic). Last mammogram was performed 1 year(s) and 1 month(s) ago. Patient History: Menarche at age 13. First Full-Term at age 21. Postmenopausal. Previous Atypical Ductal Hyperplasia at age 56. Estrogen for 2 years from age 51 until age 53. 03/18/2007, Excisional Biopsy on the Left side. 05/2015, Benign Stereotactic Core Biopsy on the left side. 05/26/2019, Benign Core Biopsy on the right side. 07/24/2013, Benign Core Biopsy on the right side. 02/28/2007, High risk Core Biopsy on the left side. Paternal grandmother had breast cancer. Risk Values: Jocelyn 5 year model risk: 4.6%. NCI Lifetime model risk: 11.6%. Prior Study Comparison: 05/13/2021 Bilateral Screening Mammogram, [facility]. 05/20/2022 Bilateral MG 3D screening mammo w/cad, [facility]. 06/10/2023 Bilateral MG 3D screening mammo w/cad, [facility]. Tissue Density: The breasts are heterogeneously dense, which may obscure small masses. Findings: Analyzed By CAD. There is no suspicious group of microcalcifications or new suspicious mass in either breast. Overall Assessment: Benign, BI-RAD 2 Management: Screening Mammogram of both breasts in 1 year. . Patient should continue monthly self-breast exams. A clinical breast exam by your physician is recommended on an annual basis. This exam should not preclude additional follow-up of suspicious palpable abnormalities. Note on Jocelyn scores and lifetime risk: 1. A Jocelyn score greater than 3% is considered moderate risk. If this is the case, consider specialist referral to assess eligibility for a risk reducing agent. 2. If overall lifetime risk for the development of breast cancer is 20% or higher, the patient may qualify for future screening with alternating mammogram and breast MRI. [facility], , 06/16/2024 2:03 PM. Electronically signed and approved by: Marco Mukherjee M.D. Radiologis
== END | disposition home or self-care (01) ==
LOC: RADMAMWWP 13:22
PROVIDERS: ATTEND Internal Medicine Geriatric Medicine
DX: Z12.31 Encounter for screening mammogram for malignant neoplasm of breast
CPT/HCPCS: 77063; 77067